=== PATIENT | male | born 1950 | race Caucasian/White ===

== ENCOUNTER 2018-09-28 21:29 | Inpatient (IN) ==
--- OUTSIDE RECORDS SUMMARY | 2018-09-28 21:32 | External Medical Summary | Continuity of Care Document ---
:1950 Author Name Keyur Durham, Provider Address Unavailable Unavailable , Care Team Providers Name Role Phone Naren White [email or web address], UNKNOWN Unavailable Unavailable Problems Active medical history not documented Allergies and Adverse Reactions Allergy history not documented Medications Medications not documented Procedures Procedures not documented Immunizations Immunizations not documented Plan of Treatment Planned Observations Planned Goals not documented Results No Known Results Results not documented
[2018-09-28] MEDS ORDERED: RAPID SEQUENCE INDUCTION BAG ONE (21:33)
[2018-09-28] MEDS ORDERED: AMIODARONE IV BOLUS / DRIP IV STA (21:41)
[2018-09-28] MEDS ORDERED: NOREPINEPHRINE BIT INJ 8 MG in DEXTROSE 5% 500 ML IV PRN (21:45)
[2018-09-28] MEDS ORDERED: AMIODARONE / D5W 360 MG/200 ML BAG IV SCH (21:45)
[2018-09-28] MEDS ORDERED: SODIUM CHLORIDE 0.9% 1000ML 1,000 ML IV SCH (21:45)
[2018-09-28 21:52] LABS: Hemoglobin 15.7 g/dL (14.0-18.0); Mean Corpuscular Hgb Conc 33.4 g/dL (32-36); Mean Corpuscular Volume 92.9 fL (80-100); Mean Platelet Volume 10.5 fL (7.4-10.4); Platelet Count 205 K/uL (130-400); RDW Coefficient of Variation 13.8 % (11.5-14.5); RDW Standard Deviation 46.3 fL (36.4-46.3); Red Blood Count 5.06 M/uL (4.7-6.1); White Blood Count 12.48 K/uL (4.8-10.8)
[2018-09-28 21:55] LABS: iSTAT Creatinine 1.4 mg/dl (0.6-1.3); iSTAT Hemoglobin 15.3 g/dl (14.0-18.0); iSTAT Ionized Calcium 1.11 mmol/l (1.12-1.32)
[2018-09-28] MEDS ORDERED: ASPIRIN 300 MG SUPP PR ONE (21:58)
[2018-09-28 22:03] LABS: INR 1.1 (0.9-1.1); Partial Thromboplastin Time 27.7 Seconds (21.0-31.0); Prothrombin Time 10.9 Seconds (9.0-12.0)
[2018-09-28 22:05] LABS: Base Excess VBG -15.1 mEq/L; Oxygen Saturation VBG 62.2 %
[2018-09-28] MEDS ORDERED: MIDAZOLAM HCL 1 MG/ML 2ML VIAL ONE (22:06)
[2018-09-28] MEDS ORDERED: HEPARIN (PORCINE) 1000 UNIT/ML 10 ML (CATH LAB USE ONLY) ONE ×2 (22:07→23:06)
[2018-09-28] MEDS ORDERED: fentaNYL citrate 100 MCG/2 ML VIAL ONE (22:07)
[2018-09-28] MEDS ORDERED: NiCARDipine HCL INJ 2.5 MG/ML 10 ML AMP ONE (22:07)
[2018-09-28] MEDS ORDERED: NITROGLYCERIN/D5W 100MCG/ML 20ML SYR ONE (22:07)
[2018-09-28 22:16] LABS: Alanine Aminotransferase 36 U/L (12-78); Albumin Globulin Ratio 1.1 (0.9-2); Albumin Level 3.1 gm/dl (3.4-5.0); Alkaline Phosphatase 73 U/L (45-117); Aspartate Aminotransferase 38 U/L (15-37); BUN Creatinine Ratio 11.6 (10-20); Bilirubin,Total 1.2 mg/dl (0.2-1); Blood Urea Nitrogen 17 mg/dl (7-18); Calcium 7.5 mg/dl (8.5-10.1); Carbon Dioxide 19 mmol/L (21-32); Chloride 109 mmol/L (98-107); Creatine Kinase 114 U/L (39-308); Creatine Kinase MB 3.5 ng/ml (0.5-3.6); Est GFR (African American) 57.3; Est GFR (Non-African American) 49.4; Globulin 2.7 gm/dl (2.5-4.0); Glucose 327 mg/dl (70-99); Potassium 3.1 mmol/L (3.5-5.1); Sodium 143 mmol/L (136-145); Total Protein 5.8 gm/dl (6.4-8.2); Troponin I 0.514 ng/ml (0-0.045)
--- NOTE | 2018-09-28 22:21 | XRay Report ---
SINGLE VIEW CHEST CLINICAL HISTORY: Cardiac arrest. Atypical chest pain. FINDINGS: 2 AP, portable, supine chest radiographs are obtained. No prior studies are available for c omparison at the time of dictation. The examination is degraded by portable technique and apical lord otic positioning. An endotracheal tube has been placed. The tip projects 3.5 cm above the david. The heart is enlarged and there is pulmonary vascular congestion. There are bilateral airspace opacities , greatest in the upper lobes. No large pleural effusion or pneumothorax is seen. The bony thorax is grossly intact. Cholecystectomy clips are seen in the right upper quadrant. IMPRESSION: 1. An endotracheal tube has been placed as detailed above. 2. Cardiomegaly with evidence of congestive failure. 3. There are bilateral airspace opacities with an upper lobe predominance. This likely represents int erstitial edema. Correlate clinically for evidence of superimposed pneumonia. Electronically signed by: Milton Espinoza M.D. 09/28/2018 10:20 PM
--- NOTE | 2018-09-28 22:22 | XRay Report ---
KUB CLINICAL HISTORY: Enteric tube placement. FINDINGS: An AP supine view of the upper abdomen is obtained. No prior studies are available for nikos blanc at the time of dictation. An enteric tube has been placed. The tip projects below the diaphrag m over the mid to distal stomach. There is no evidence of bowel obstruction. Cholecystectomy clips ar e seen in the right upper quadrant. The imaged bony structures appear intact. IMPRESSION: An enteric tube projects below the diaphragm over the mid to distal stomach. Electronically signed by: Milton Espinoza M.D. 09/28/2018 10:21 PM
[2018-09-28] MEDS ORDERED: OPTIRAY 320 125ml IV PRN (22:29)
--- NOTE | 2018-09-28 22:33 | CT Scan Report ---
CT SCAN OF THE BRAIN WITHOUT IV CONTRAST CLINICAL HISTORY: Cardiac arrest. COMPARISON STUDY: No priors. TECHNIQUE: Unenhanced axial CT scan of the brain is performed from the vertex to the skull base. A d ose lowering technique was utilized adhering to the principles of ALARA. CT DOSE: 3624.33 mGy.cm FINDINGS: Endotracheal and enteric tubes are noted on the [employer] tomogram. Brain parenchyma: The brain parenchyma is normal in appearance. There is no hemorrhage, mass effect, or evidence of acute territorial ischemia by CT criteria. Cedeño-white matter differentiation is preser philip. No extra-axial fluid collection is seen. Ventricles, sulci, cisterns: Normal in configuration. Intracranial vasculature: There is atherosclerotic calcification of the cavernous carotid arteries. Calvarium: Unremarkable. Sinuses and mastoids: There is mild mucosal thickening within the ethmoid sinuses. The remaining visu alized paranasal sinuses are clear. The mastoid air cells are well pneumatized. Fluid is noted in the nasopharynx. Orbits: The bony orbits are grossly intact. IMPRESSION: There is no hemorrhage, mass effect, or evidence of acute territorial ischemia by CT lorna haider. Electronically signed by: Milton Espinoza M.D. 09/28/2018 10:29 PM
[2018-09-28 22:34] LABS: Beta-Hydroxybutyrate 1.28 mg/dl (0.2-2.81)
--- NOTE | 2018-09-28 22:34 | Cardiology Consultation ---
Date of Consultation September 28, 2018 Assessment & Plan (1) Cardiac arrest: Patient here after out of hospital cardiac arrest. Initial rhythm reportedly VF. Post multiple rounds of CPR before ROSC. Hemodynamically stable now on minimal vasopressors. EKG with wide complex rhythm. With reported preceding chest pain I agree with proceeding with cardiac catheterization to evaluate for inciting ACS event. Further recommendations pending findings of cardiac catheterization. We will plan to place cooling catheter. History of Present Illness History of Present Illness Mr. Resendez is a 68-year-old man here after outside hospital cardiac arrest. Patient seen emergently in the ED after heart alert activated following ROSC. Patient intubated/sedated/paralyzed at time of interview. Systolic pressures in the 100-110s on 0.1 and norepi. EKG showed wide complex rhythm with wide RBBB block pattern in 90-110s. Per history obtained from patient was traveling home from [place] and reportedly was feeling fine. Upon arrival to the airport told his that he was having a "anginal attack," then became unresponsive. Reportedly down for ~10 minutes at the airport. Initial rhythm VF and shocked multiple times in field. Upon arrival intermittent ROSC with ongoing chest compressions. Intubated in ED. Started on amiodarone. Per patient had a cardiac catheterization approximately 4 years ago in [place]. Did not require stent/bypass surgery at that time. No other medical issues for which sees a doctor for regularly. Patient History Medical History Chest pain Social History Smoking Status: Unknown if ever smoked Review of Systems Review of Systems: Unobtainable due to endotracheal tube Physical Exam Physical Exam: General: Intubated/sedated/paralyzed HEENT: Sclerae anicteric, ETT in place Lungs: Clear to auscultation bilaterally Cardiac: Regular rate no murmurs Abdomen: Soft, nondistended Extremities: Warm, well perfused, no edema. 2+ radial pulses Skin: No rashes or lesions. Neuro: Paralyzed PG Care Time/CCT Total # of Minutes Spent Total Time Spent with Patient: Total time spent is greater than 50% in coordination of care (as documented) at patient's floor/unit and/or counseling patient:
--- NOTE | 2018-09-28 22:47 | CT Scan Report ---
CT ANGIOGRAM OF THE CHEST; CT SCAN OF THE ABDOMEN AND PELVIS WITH IV CONTRAST CLINICAL HISTORY: Cardiac arrest. COMPARISON STUDY: Chest x-ray and KUB dated 09/28/2018. TECHNIQUE: Following the IV administration of 116 of Optiray 320, CT angiogram of the chest is perfor med from the upper abdomen to the thoracic inlet utilizing the pulmonary embolus protocol. Images are reviewed in the axial, sagittal, coronal planes. 3-D MIPS images are created and assessed. Subsequen tly, CT scan of the abdomen and pelvis was performed from the lung bases to the proximal femora. Imag es are reviewed in the axial, sagittal, and coronal planes. IV contrast was administered without comp lication. A dose lowering technique was utilized adhering to the principles of ALARA. The examination is degraded by motion artifact, as well as by streak artifact from the arms which could not be eleva melissa above the chest or abdomen. FINDINGS: CHEST: Thyroid: Imaged portions of the thyroid gland are mildly enlarged and heterogeneous in attenuation. Thoracic aorta: The thoracic aorta is normal in caliber and demonstrates standard 3-vessel arch anato my. The thoracic aorta is not well opacified. Pulmonary vasculature: The pulmonary trunk is normal in caliber. There are no filling defects identif ied in the main, lobar, or segmental pulmonary arteries to indicate pulmonary embolus. Heart: The heart is mildly enlarged and configuration, and without pericardial effusion. There are sc attered coronary artery calcifications. Lungs and pleural spaces: Evaluation of the lung parenchyma is degraded by motion artifact. An endotr acheal tube terminates above the david. Minimal secretions are noted in the trachea. Airspace consol idation is seen throughout both lungs, most confluent in the upper lobes and the superior segments of the lower lobes. Only trace pleural fluid is seen bilaterally. There is no pneumothorax. Mediastinum: There is no mediastinal lymphadenopathy. Dinora: Clear. Axillae: There is no axillary lymphadenopathy. Bony thorax: No lytic or blastic lesions are identified. ABDOMEN AND PELVIS: Liver: The contrast-enhanced liver is normal in size, contour, and attenuation. There is no intrahepa tic or ductal dilatation. The hepatic veins and portal veins are patent. Gallbladder: Surgically absent noting clips in the gallbladder fossa. Spleen: Normal in size and attenuation. Pancreas: Unremarkable. Adrenal glands: Unremarkable. Kidneys: The contrast enhanced kidneys are normal in size and without hydronephrosis. Numerous parape lvic cysts are seen bilaterally. The kidneys enhance symmetrically. Abdominal vasculature: The abdominal aorta is normal in course and caliber noting moderate to advance d atherosclerotic calcification. Stomach and bowel: An enteric tube terminates in the distal stomach. The duodenum is normal in config uration. There is no bowel obstruction. Cervicomedullary gas is noted involving the cecum. Pneumatosi s intestinalis is not excluded. There is no mesenteric venous or portal venous gas The appendix is w ell-visualized and normal Peritoneum: There is no intraperitoneal free air or abdominal ascites. There is a small fat-containin g umbilical hernia. Lymphadenopathy: None. Pelvic viscera: The bladder is decompressed around a Galo catheter. Small foci of intraluminal gas a re likely related to instrumentation. The prostate and seminal vesicles are normal as imaged. Skeletal structures: Degenerative change is noted in the sacroiliac joints with partial fusion on the right. Mild to moderate lumbosacral spondylosis is observed. No lytic or blastic lesions are seen. IMPRESSION: 1. Streak and motion compromised examination. 2. There is no evidence of pulmonary embolus in the main, lobar, or segmental pulmonary arteries. 3. There is diffuse bilateral airspace consolidation as above. This could represent pulmonary edema, multifocal pneumonia, pulmonary hemorrhage, and/or ARDS. Clinical correlation will be essential. 4. Only trace pleural effusions are identified. No pneumothorax is seen. 5. Mild cardiomegaly. 6. Circumferential gas is noted involving the cecum. This is likely related to colonic contents/stool . Pneumatosis intestinalis is considered much less likely but not entirely excluded. 7. No additional findings are concerning for pneumatosis intestinalis. There is no mesenteric venous or portal venous gas. No intraperitoneal free air is seen. 8. Endotracheal and enteric tubes have been placed as above. Electronically signed by: Milton Espinoza M.D. 09/28/2018 10:45 PM
--- NOTE | 2018-09-28 22:47 | Emergency Department Note ---
Entered by Emy Marie acting as a scribe for History of Present Illness General Chief complaint: Cardiac Arrest/CPR Source: EMS Mode of arrival: EMS Limitations: other (Patient is obtunded) History of Present Illness Onset (ago): hour(s) 1 Location: chest Radiation: non-radiation Pain Consistency: + constant Relieved By: + none Exacerbated By: + none Associated symptoms: + chest pain Treatments prior to arrival: other (Amiodarone, Epi, Shocked) The patient is a 55 year old male who presents to the ED with complaints of cardiac arrest. He was brought to the ED via EMS. EMS states he was at the airport this evening with his when he went into a V-fib arrest. He was shocked 5 times, and was given 2 doses of Epi and 1 dose of Amiodarone. He did have pulses in the field according to EMS. CPR was initiated in the field. Family arrived at the bedside and told me the patient had just gotten off a plane from [place], [place], this evening when he started complaining of chest pain and told his he was having "an anginal attack". Past Med/Surg History Medical History Chest pain Social History Smoking Status: Unknown if ever smoked Review of Systems See HPI for pertinent positives & negatives. Unobtainable due to cognitive status (Patient is obtunded ) Physical Exam Vital Signs Vital Signs - 24 hr 09/28/18 21:30 09/28/18 21:37 09/28/18 21:40 Sepsis Action Taken by Nursing No Action Required Pulse Rate 84 119 H Pulse Rate from SpO2 Sensor 102 H 119 H Respiratory Rate 23 Blood Pressure Blood Pressure Mean Pulse Oximetry 45 L 32 L Oxygen Delivery Method Ambu-Bag Fraction of Inspired Oxygen 09/28/18 21:45 09/28/18 21:48 09/28/18 21:50 Sepsis Action Taken by Nursing Pulse Rate 102 H 113 H 108 H Pulse Rate from SpO2 Sensor 115 H 113 H 108 H Respiratory Rate 18 20 18 Blood Pressure 130/95 118/86 Blood Pressure Mean 106 96 Pulse Oximetry 94 98 97 Oxygen Delivery Method Mechanical Vent Fraction of Inspired Oxygen 100 09/28/18 21:55 09/28/18 22:00 09/28/18 22:05 Sepsis Action Taken by Nursing Pulse Rate 95 H 93 H 90 Pulse Rate from SpO2 Sensor 100 H 92 H 90 Respiratory Rate 15 18 13 Blood Pressure 103/79 112/83 110/69 Blood Pressure Mean 87 92 82 Pulse Oximetry 86 L 84 L 86 L Oxygen Delivery Method Mechanical Vent Mechanical Vent Mechanical Vent Fraction of Inspired Oxygen 09/28/18 22:10 09/28/18 22:20 Sepsis Action Taken by Nursing Pulse Rate 87 Pulse Rate from SpO2 Sensor 86 Respiratory Rate 18 Blood Pressure 103/76 Blood Pressure Mean 85 Pulse Oximetry 89 L Oxygen Delivery Method Mechanical Vent Mechanical Vent Fraction of Inspired Oxygen 100 GENERAL: Patient is obtunded in full cardiac arrest. Agonal respirations are noted. EYES: The conjunctivae are clear. The pupils are midsize and minimally reactive to light bilaterally. EARS, NOSE, MOUTH AND THROAT: The nose is without any evidence of any deformity. Blood was noted in the oropharynx. Dentition was intact. NECK: The neck is nontender and supple. RESPIRATORY: Agonal respirations were noted. There were rales noted throughout with bagging. CARDIOVASCULAR: Regular rate and rhythm noted there no murmurs rubs or gallops normal S1 normal S2 GASTROINTESTINAL: The abdomen is soft. Bowel sounds are present in all quadrants. Abdomen is nontender MUSCULOSKELETAL/EXTREMITIES: There is no evidence of gross deformity full range of motion is noted in the hips and shoulders SKIN: There is no obvious evidence of any rash. Pedal edema were noted bilatera lly. Erythema was noted over the mid chest wall from the Scottie device. NEUROLOGIC: The patient does not answer questions. He does not follow commands. Unable to assess orientation at this time. Patient is in cardiac arrest receiving chest compressions with the Scottie device. Procedures Free Text Procedures Endotracheal Intubation Indication Cardiac Arrest The patient was on 100% oxygen via NRB prior to the procedure. Suction, airway equipment, RSI drugs, respiratory equipment, and appropriate personnel were prepared prior to the initiation of the procedure. A time out was taken. Induction was used with Succinylcholine. After observing the clinical benefit of the medications, the airway was easily visualized utilizing a glide-scope and Boujie. A 8 size ETT tube was placed atraumatically to 25 cm at the lip using standard technique. The cuff inflated without signs of malfunction. There were bilateral breath sounds, positive colormetric change, no gastric sounds, a good capnography waveform, and post procedure pulse oximetry was 88%. There were no complications. Course 0930: The patient was evaluated in room A1 and a complete history and physical were performed. 2144: I discussed the patients case with Dr. Dozier Interventional Cardiology. The patient will be further evaluated. 2322: I discussed the patients case with Dr. Lao, [facility]. The patient will be further evaluated. Consultations Consultation #1: I discussed the patients case with Dr. Dozier Interventional Cardiology. The patient will be further evaluated. Time: 21:44 Consultation #2: I discussed the patients case with Dr. Lao, [facility]. The patient will be further evaluated. Time: 23:22 Administered Medications Norepinephrine Bitartrate 8 mg (/ Dextrose) 508 mls @ 20.76 mls/hr IV .Q24H PRN; Protocol PRN Reason: TITRATE Stop: 10/28/18 21:44 Last Titration: 09/28/18 22:05 Dose: 0.1 mcg/kg/min, 41.5 mls/hr Documented by: [id number] Admin: 09/28/18 21:50 Dose: 0.05 mcg/kg/min, 20.8 mls/hr Documented by: [id number] Cosigned by: [id number] Amiodarone HCl/Dextrose (Nexterone / D5w) 360 mg in 200 mls @ 33.333 mls/hr IV .Q6H CARLOS Stop: 09/29/18 03:44 Last Admin: 09/28/18 21:47 Dose: 1 mg/min, 33.3 mls/hr Documented by: [id number] Cosigned by: [id number] Ioversol (Optiray 320 125ml) 125 ml IV ONCE PRN PRN Reason: Interaction Checking Stop: 10/02/18 22:28 Last Admin: 09/28/18 22:30 Dose: 116 ml Documented by: [id number] Discontinued Medications Aspirin (Aspirin) 300 mg MN ONE ONE Stop: 09/28/18 21:59 Last Admin: 09/28/18 22:04 Dose: 300 mg Documented by: [id number] Sodium Chloride (Nss 1000ml) 1,000 mls @ 999 mls/hr IV .Q1H1M CARLOS Stop: 09/28/18 22:45 Last Admin: 09/28/18 21:30 Dose: 999 mls/hr Documented by: [id number] Medical Decision Making Differential Diagnosis Differential diagnoses includes but is not limited to acute coronary syndrome, myocardial infarction, pericarditis, pulmonary embolus, aortic dissection, pneu monia, pneumothorax, musculoskeletal, shingles, esophageal. Medical Records Attestation: I reviewed the patient's medical records. Home Medications Current Medication List: was personally reviewed by me Laboratory Data Attestation: I reviewed the patient's lab results. Result diagrams: 09/28/18 21:35 09/28/18 21:35 Lab Results 09/28/18 09/28/18 09/28/18 Range/Units 21:35 21:35 21:35 WBC 12.48 H (4.8-10.8) K/uL RBC 5.06 (4.7-6.1) M/uL Hgb 15.7 (14.0-18.0) g/dL POC Hgb (14.0-18.0) g/dl Hct 47.0 (42-52) % POC Hct (42-52) % MCV 92.9 (80-100) fL MCH 31.0 (25-34) pg MCHC 33.4 (32-36) g/dL RDW Std Deviation 46.3 (36.4-46.3) fL RDW Coeff of Jacobo 13.8 (11.5-14.5) % Plt Count 205 (130-400) K/uL MPV 10.5 H (7.4-10.4) fL Immature Gran % (Auto) 3.0 % Neut % (Auto) 47.1 % Lymph % (Auto) 43.0 % Gladwin % (Auto) 5.4 % Eos % (Auto) 1.1 % Baso % (Auto) 0.4 % Immature Gran # (Auto) 0.37 H (0.00-0.02) K/uL Neut # (Auto) 5.87 (1.4-6.5) K/uL Lymph # (Auto) 5.37 H (1.2-3.4) K/uL Gladwin # (Auto) 0.68 H (0.11-0.59) K/uL Eos # (Auto) 0.14 (0-0.5) K/uL Baso # (Auto) 0.05 (0-0.2) K/uL PT 10.9 (9.0-12.0) Seconds INR 1.1 (0.9-1.1) APTT 27.7 (21.0-31.0) Seconds PTT Ratio 1.0 VBG pH (7.36-7.41) VBG pCO2 (38-50) mmHg VBG pO2 mmHg VBG HCO3 mmol/L VBG O2 Saturation % VBG Base Excess mEq/L Barometric Pressure mm/Hg POC Sodium (135-144) mEq/L Sodium 143 (136-145) mmol/L POC Potassium (3.3-5.0) mEq/L Potassium 3.1 L (3.5-5.1) mmol/L POC Chloride (101-112) mEq/L Chloride 109 H (98-107) mmol/L Carbon Dioxide 19 L (21-32) mmol/L POC Total CO2 (24-31) mEq/l Anion Gap 15.0 H (3-11) POC Anion Gap (16-25) mmol/L POC BUN (7-18) mg/dl BUN 17 (7-18) mg/dl Creatinine 1.46 H (0.6-1.4) mg/dl POC Creatinine (0.6-1.3) mg/dl Est Cr Clr Drug Dosing Not Reportable Est GFR ( Amer) 57.3 Est GFR (Non-Af Amer) 49.4 BUN/Creatinine Ratio 11.6 (10-20) Glucose 327 H* (70-99) mg/dl POC Glucose (other) (70-99) mg/dl Calcium 7.5 L (8.5-10.1) mg/dl POC Ioniz Calcium Sebastian (1.12-1.32) mmol/l Phosphorus 4.9 (2.5-4.9) mg/dl Magnesium 2.7 H (1.8-2.4) mg/dl Total Bilirubin 1.2 H (0.2-1) mg/dl AST 38 H (15-37) U/L ALT 36 (12-78) U/L Alkaline Phosphatase 73 (45-117) U/L Total Creatine Kinase 114 (39-308) U/L CK-MB (CK-2) 3.5 (0.5-3.6) ng/ml CK/CKMB % Calc 3.1 H (0-3.0) POC Troponin I (0-0.045) ng/ml Troponin I 0.514 H* (0-0.045) ng/ml Total Protein 5.8 L (6.4-8.2) gm/dl Albumin 3.1 L (3.4-5.0) gm/dl Globulin 2.7 (2.5-4.0) gm/dl Albumin/Globulin Ratio 1.1 (0.9-2) Lipase 123 (73-393) U/L Beta-Hydroxybutyric Acd 1.28 (0.2-2.81) mg/dl Specimen Hemolysis 09/28/18 09/28/18 09/28/18 Range/Units 21:41 21:48 21:54 WBC (4.8-10.8) K/uL RBC (4.7-6.1) M/uL Hgb (14.0-18.0) g/dL POC Hgb 15.3 (14.0-18.0) g/dl Hct (42-52) % POC Hct 45 (42-52) % MCV (80-100) fL MCH (25-34) pg MCHC (32-36) g/dL RDW Std Deviation (36.4-46.3) fL RDW Coeff of Jacobo (11.5-14.5) % Plt Count (130-400) K/uL MPV (7.4-10.4) fL Immature Gran % (Auto) % Neut % (Auto) % Lymph % (Auto) % Gladwin % (Auto) % Eos % (Auto) % Baso % (Auto) % Immature Gran # (Auto) (0.00-0.02) K/uL Neut # (Auto) (1.4-6.5) K/uL Lymph # (Auto) (1.2-3.4) K/uL Gladwin # (Auto) (0.11-0.59) K/uL Eos # (Auto) (0-0.5) K/uL Baso # (Auto) (0-0.2) K/uL PT (9.0-12.0) Seconds INR (0.9-1.1) APTT (21.0-31.0) Seconds PTT Ratio VBG pH 7.00 L (7.36-7.41) VBG pCO2 72 H (38-50) mmHg VBG pO2 45 mmHg VBG HCO3 17 mmol/L VBG O2 Saturation 62.2 % VBG Base Excess -15.1 mEq/L Barometric Pressure 733.8 mm/Hg POC Sodium 142 (135-144) mEq/L Sodium (136-145) mmol/L POC Potassium 3.0 L (3.3-5.0) mEq/L Potassium (3.5-5.1) mmol/L POC Chloride 105 (101-112) mEq/L Chloride (98-107) mmol/L Carbon Dioxide (21-32) mmol/L POC Total CO2 21 L (24-31) mEq/l Anion Gap (3-11) POC Anion Gap 20.0 (16-25) mmol/L POC BUN 20 H (7-18) mg/dl BUN (7-18) mg/dl Creatinine (0.6-1.4) mg/dl POC Creatinine 1.4 H (0.6-1.3) mg/dl Est Cr Clr Drug Dosing Est GFR ( Amer) Est GFR (Non-Af Amer) BUN/Creatinine Ratio (10-20) Glucose (70-99) mg/dl POC Glucose (other) 304 H (70-99) mg/dl Calcium (8.5-10.1) mg/dl POC Ioniz Calcium Sebastian 1.11 L (1.12-1.32) mmol/l Phosphorus (2.5-4.9) mg/dl Magnesium (1.8-2.4) mg/dl Total Bilirubin (0.2-1) mg/dl AST (15-37) U/L ALT (12-78) U/L Alkaline Phosphatase (45-117) U/L Total Creatine Kinase (39-308) U/L CK-MB (CK-2) (0.5-3.6) ng/ml CK/CKMB % Calc (0-3.0) POC Troponin I 0.35 H (0-0.045) ng/ml Troponin I (0-0.045) ng/ml Total Protein (6.4-8.2) gm/dl Albumin (3.4-5.0) gm/dl Globulin (2.5-4.0) gm/dl Albumin/Globulin Ratio (0.9-2) Lipase (73-393) U/L Beta-Hydroxybutyric Acd (0.2-2.81) mg/dl Specimen Hemolysis Imaging Data Radiologist's Impression: Radiology results as stated below per my review and the radiologist's interpretation: KUB CLINICAL HISTORY: Enteric tube placement. FINDINGS: An AP supine view of the upper abdomen is obtained. No prior studies are available for comparison at the time of dictation. An enteric tube has been placed. The tip projects below the diaphragm over the mid to distal stomach. There is no evidence of bowel obstruction. Cholecystectomy clips are seen in the right upper quadrant. The imaged bony structures appear intact. IMPRESSION: An enteric tube projects below the diaphragm over the mid to distal stomach. Electronically signed by: Milton Espinoza M.D. 09/28/2018 10:[address] SCAN OF THE BRAIN WITHOUT IV CONTRAST CLINICAL HISTORY: Cardiac arrest. COMPARISON STUDY: No priors. TECHNIQUE: Unenhanced axial CT scan of the brain is performed from the vertex to the skull base. A dose lowering technique was utilized adhering to the principles of ALARA. CT DOSE: 3624.33 mGy.cm FINDINGS: Endotracheal and enteric tubes are noted on the neurology hospitalist tomogram. Brain parenchyma: The brain parenchyma is normal in appearance. There is no hemorrhage, mass effect, or evidence of acute territorial ischemia by CT criteria. Cedeño-white matter differentiation is preserved. No extra-axial fluid collection is seen. Ventricles, sulci, cisterns: Normal in configuration. Intracranial vasculature: There is atherosclerotic calcification of the cavernous carotid arteries. Calvarium: Unremarkable. Sinuses and mastoids: There is mild mucosal thickening within the ethmoid sinuses. The remaining visualized paranasal sinuses are clear. The mastoid air cells are well pneumatized. Fluid is noted in the nasopharynx. Orbits: The bony orbits are grossly intact. IMPRESSION: There is no hemorrhage, mass effect, or evidence of acute territorial ischemia by CT criteria. Electronically signed by: Milton Espinoza M.D. 09/28/2018 10:[address] ANGIOGRAM OF THE CHEST; CT SCAN OF THE ABDOMEN AND PELVIS WITH IV CONTRAST CLINICAL HISTORY: Cardiac arrest. COMPARISON STUDY: Chest x-ray and KUB dated 09/28/2018. TECHNIQUE: Following the IV administration of 116 of Optiray 320, CT angiogram of the chest is performed from the upper abdomen to the thoracic inlet utilizing the pulmonary embolus protocol. Images are reviewed in the axial, sagittal, coronal planes. 3-D MIPS images are created and assessed. Subsequently, CT scan of the abdomen and pelvis was performed from the lung bases to the proximal femora. Images are reviewed in the axial, sagittal, and coronal planes. IV contrast was administered without complication. A dose lowering technique was utilized adhering to the principles of ALARA. The examination is degraded by mo tion artifact, as well as by streak artifact from the arms which could not be elevated above the chest or abdomen. FINDINGS: CHEST: Thyroid: Imaged portions of the thyroid gland are mildly enlarged and heterogeneous in attenuation. Thoracic aorta: The thoracic aorta is normal in caliber and demonstrates standard 3-vessel arch anatomy. The thoracic aorta is not well opacified. Pulmonary vasculature: The pulmonary trunk is normal in caliber. There are no filling defects identified in the main, lobar, or segmental pulmonary arteries to indicate pulmonary embolus. Heart: The heart is mildly enlarged and configuration, and without pericardial effusion. There are scattered coronary artery calcifications. Lungs and pleural spaces: Evaluation of the lung parenchyma is degraded by motion artifact. An endotracheal tube terminates above the david. Minimal secretions are noted in the trachea. Airspace consolidation is seen throughout both lungs, most confluent in the upper lobes and the superior segments of the lower lobes. Only trace pleural fluid is seen bilaterally. There is no pneumo thorax. Mediastinum: There is no mediastinal lymphadenopathy. Dinora: Clear. Axillae: There is no axillary lymphadenopathy. Bony thorax: No lytic or blastic lesions are identified. ABDOMEN AND PELVIS: Liver: The contrast-enhanced liver is normal in size, contour, and attenuation. There is no intrahepatic or ductal dilatation. The hepatic veins and portal veins are patent. Gallbladder: Surgically absent noting clips in the gallbladder fossa. Spleen: Normal in size and attenuation. Pancreas: Unremarkable. Adrenal glands: Unremarkable. Kidneys: The contrast enhanced kidneys are normal in size and without hydronephrosis. Numerous parapelvic cysts are seen bilaterally. The kidneys enhance symmetrically. Abdominal vasculature: The abdominal aorta is normal in course and caliber noting moderate to advanced atherosclerotic calcification. Stomach and bowel: An enteric tube terminates in the distal stomach. The duodenum is normal in configuration. There is no bowel obstruction. Cervic omedullary gas is noted involving the cecum. Pneumatosis intestinalis is not excluded. There is no mesenteric venous or portal venous gas The appendix is well-visualized and normal Peritoneum: There is no intraperitoneal free air or abdominal ascites. There is a small fat-containing umbilical hernia. Lymphadenopathy: None. Pelvic viscera: The bladder is decompressed around a Galo catheter. Small foci of intraluminal gas are likely related to instrumentation. The prostate and seminal vesicles are normal as imaged. Skeletal structures: Degenerative change is noted in the sacroiliac joints with partial fusion on the right. Mild to moderate lumbosacral spondylosis is observed. No lytic or blastic lesions are seen. IMPRESSION: 1. Streak and motion compromised examination. 2. There is no evidence of pulmonary embolus in the main, lobar, or segmental pulmonary arteries. 3. There is diffuse bilateral airspace consolidation as above. This could represent pulmonary edema, multifocal pneumonia, pulmonary hemorrhage, and/or ARDS. Clinical correlation will be essential. 4. Only trace pleural effusions are identified. No pneumothorax is seen. 5. Mild cardiomegaly. 6. Circumferential gas is noted involving the cecum. This is likely related to colonic contents/stool. Pneumatosis intestinalis is considered much less likely but not entirely excluded. 7. No additional findings are concerning for pneumatosis intestinalis. There is no mesenteric venous or portal venous gas. No intraperitoneal free air is seen. 8. Endotracheal and enteric tubes have been placed as above. Electronically signed by: iMlton Espinoza M.D. 09/28/2018 10:[address] ANGIOGRAM OF THE CHEST; CT SCAN OF THE ABDOMEN AND PELVIS WITH IV CONTRAST CLINICAL HISTORY: Cardiac arrest. COMPARISON STUDY: Chest x-ray and KUB dated 09/28/2018. TECHNIQUE: Following the IV administration of 116 of Optiray 320, CT angiogram of the chest is performed from the upper abdomen to the thoracic inlet utilizing the pulmonary embolus protocol. Images are reviewed in the axial, sagittal, coronal planes. 3-D MIPS images are created and assessed. Subsequently, CT scan of the abdomen and pelvis was performed from the lung bases to the proximal femora. Images are reviewed in the axial, sagittal, and coronal planes. IV contrast was administered without complication. A dose lowering technique was utilized adhering to the principles of ALARA. The examination is degraded by motion artifact, as well as by streak artifact from the arms which could not be elevated above the chest or abdomen. FINDINGS: CHEST: Thyroid: Imaged portions of the thyroid gland are mildly enlarged and heterogeneous in attenuation. Thoracic aorta: The thoracic aorta is normal in caliber and demonstrates standard 3-vessel arch anatomy. The thoracic aorta is not well opacified. Pulmonary vasculature: The pulmonary trunk is normal in caliber. There are no filling defects identified in the main, lobar, or segmental pulmonary arteries to indicate pulmonary embolus. Heart: The heart is mildly enlarged and configuration, and without pericardial effusion. There are scattered coronary artery calcifications. Lungs and pleural spaces: Evaluation of the lung parenchyma is degraded by motion artifact. An endotracheal tube terminates above the david. Minimal secretions are noted in the trachea. Airspace consolidation is seen throughout both lungs, most confluent in the upper lobes and the superior segments of the lower lobes. Only trace pleural fluid is seen bilaterally. There is no pneumothorax. Mediastinum: There is no mediastinal lymphadenopathy. Dinora: Clear. Axillae: There is no axillary lymphadenopathy. Bony thorax: No lytic or blastic lesions are identified. ABDOMEN AND PELVIS: Liver: The contrast-enhanced liver is normal in size, contour, and attenuation. There is no intrahepatic or ductal dilatation. The hepatic veins and portal veins are patent. Gallbladder: Surgically absent noting clips in the gallbladder fossa. Spleen: Normal in size and attenuation. Pancreas: Unremarkable. Adrenal glands: Unremarkable. Kidneys: The contrast enhanced kidneys are normal in size and without hydronephrosis. Numerous parapelvic cysts are seen bilaterally. The kidneys enhance symmetrically. Abdominal vasculature: The abdominal aorta is normal in course and caliber noting moderate to advanced atherosclerotic calcification. Stomach and bowel: An enteric tube terminates in the distal stomach. The duodenum is normal in configuration. There is no bowel obstruction. Cervicomedullary gas is noted involving the cecum. Pneumatosis intestinalis is not excluded. There is no mesenteric venous or portal venous gas The appendix is well-visualized and normal Peritoneum: There is no intraperitoneal free air or abdominal ascites. There is a small fat-containing umbilical hernia. Lymphadenopathy: None. Pelvic viscera: The bladder is decompressed around a Galo catheter. Small foci of intraluminal gas are likely related to instrumentation. The prostate and seminal vesicles are normal as imaged. Skeletal structures: Degenerative change is noted in the sacroiliac joints with partial fusion on the right. Mild to moderate lumbosacral spondylosis is observed. No lytic or blastic lesions are seen. IMPRESSION: 1. Streak and motion compromised examination. 2. There is no evidence of pulmonary embolus in the main, lobar, or segmental pulmonary arteries. 3. There is diffuse bilateral airspace consolidation as above. This could represent pulmonary edema, multifocal pneumonia, pulmonary hemorrhage, and/or ARDS. Clinical correlation will be essential. 4. Only trace pleural effusions are identified. No pneumothorax is seen. 5. Mild cardiomegaly. 6. Circumferential gas is noted involving the cecum. This is likely related to colonic contents/stool. Pneumatosis intestinalis is considered much less likely but not entirely excluded. 7. No additional findings are concerning for pneumatosis intestinalis. There is no mesenteric venous or portal venous gas. No intraperitoneal free air is seen. 8. Endotracheal and enteric tubes have been placed as above. Electronically signed by: Milton Espinoza M.D. 09/28/2018 10:45 PM SINGLE VIEW CHEST CLINICAL HISTORY: Cardiac arrest. Atypical chest pain. FINDINGS: 2 AP, portable, supine chest radiographs are obtained. No prior studies are available for comparison at the time of dictation. The examination is degraded by portable technique and apical lordotic positioning. An endotracheal tube has been placed. The tip projects 3.5 cm above the david. The heart is enlarged and there is pulmonary vascular congestion. There are bilateral airspace opacities, greatest in the upper lobes. No large pleural effusion or pneumothorax is seen. The bony thorax is grossly intact. Ch olecystectomy clips are seen in the right upper quadrant. IMPRESSION: 1. An endotracheal tube has been placed as detailed above. 2. Cardiomegaly with evidence of congestive failure. 3. There are bilateral airspace opacities with an upper lobe predominance. This likely represents interstitial edema. Correlate clinically for evidence of superimposed pneumonia. Electronically signed by: Milton Espinoza M.D. 09/28/2018 10:20 PM ECG Data Attestation: I personally reviewed and interpreted this ECG as follows: Indication: other (Cardiac arrest) Rate (beats per minute): 102 Rhythm: sinus tachycardia Findings: + RBBB Comparison ECG Date: no prior available MDM Narrative The patient is a 68-year-old male who presented to the emergency department after a cardiac arrest. I received the prehospital notification phone call from the adjunct physical education instructor. Patient had a V. fib cardiac arrest. He received multiple defibrillations as well as amiodarone and epinephrine. CPR was started as well. According to the patient significant other he did complain of some chest discomfort and recently returned from [place] on a flight. The patient was in full cardiac arrest. His EKG appears to be consistent with ischemia. I discussed his case with the portrait photographer and he requested that we make the patient a heart alert while we are continuing her resuscitation. The patient was treated with IV fluids as well as IV Levophed. He was also started on IV amiodarone and given rectal aspirin. I discussed the patient's laboratory and radiographic studies with his significant other. He was also evaluated by the portrait photographer at the bedside. The grounds keeper team was also involved as the patient was made a CODE BLUE prior to arrival and then a heart alert after evaluation. I discussed the patient's condition with his significant other. She is aware that his condition is very tenuous at this time. Additional history was obtained from the prehospital personnel as well as the patient's significant other. I also discussed his case with the on-call [facility] hospitalist. They have agreed to evaluate the patient in the emergency department for further management disposition. Impression & Plan Cardiac arrest, Chest pain, ST elevation (STEMI) myocardial infarction, Pulmonary edema Critical Care Time Critical Care Time: Yes Total Critical Care Time: 60 I have personally spent greater than 60 minutes of critical care time in the direct management of this patient. This includes bedside care, interpretation of diagnostic studies, and testing, discussion with consultants, patient, and family members, and other required patient management activities. This 60 minutes is in excess of all separately billable procedures. Discharge Plan Visit Data *Final* Discharge Date/Time: 09/28/18 23:40 Chief Complaint: Cardiac Arrest/CPR ED Provider: Dylan Santa Discharge Problem: Cardiac arrest, Chest pain, ST elevation (STEMI) myocardial infarction, Pulmonary edema Patient Disposition: Still a Patient Discharge Instructions Interventions: ED Discharge Assessment Last Done: 09/28/18 23:40 The scribe's documentation has been prepared under my direction and personally reviewed by me in its entirety. I confirm that the note above accurately reflects all work, treatment, procedures, and medical decision making performed by me.
[2018-09-28 22:57] LABS: Basophils # (auto) 0.05 K/uL (0-0.2); Basophils % (auto) 0.4 %; Eosinophils # (auto) 0.14 K/uL (0-0.5); Eosinophils % (auto) 1.1 %; Immature Granulocytes # (auto) 0.37 K/uL (0.00-0.02); Lymphocytes # (auto) 5.37 K/uL (1.2-3.4); Monocytes # (auto) 0.68 K/uL (0.11-0.59); Monocytes % (auto) 5.4 %; Neutrophils # (auto) 5.87 K/uL (1.4-6.5); Neutrophils % (auto) 47.1 %
[2018-09-28] MEDS ORDERED: LIDOCAINE HCL/D5W 2000 MG/500 ML BAG IV ONE (23:13)
[2018-09-28] MEDS ORDERED: MAG SULFATE 50% 1GM/2ML VIAL IV ONE (23:20)
[2018-09-28] MEDS ORDERED: AMIODARONE 150MG / 100ML D5W (CATH LAB USE ONLY) ONE (23:21)
[2018-09-28] MEDS ORDERED: AMIODARONE HCL INJ 50 MG/ML 3 ML VIAL (CATH LAB USE ONLY) ONE (23:21)
[2018-09-28 23:30] LABS: Magnesium 2.7 mg/dl (1.8-2.4); Phosphorus 4.9 mg/dl (2.5-4.9)
[2018-09-28] MEDS ORDERED: TICAGRELOR 90 MG TAB PO ONE (23:30)
[2018-09-28] MEDS ORDERED: CALCIUM CHLORIDE 10% 10 ML SYR IV ONE (23:33)
[2018-09-28] MEDS ORDERED: PROPOFOL IV EMULSION 10 MG/ML 100 ML VIAL (CATH LAB USE ONLY) ONE (23:39)
[2018-09-28] MEDS ORDERED: METOPROLOL TARTRATE 1 MG/ML VIAL IV ONE (23:39)
[2018-09-28] MEDS ORDERED: ESMOLOL / NSS 2,500 MG/250 ML BAG IV PRN (23:47)
[2018-09-29 00:10] LABS: iSTAT Arterial Blood Gas HCO3 17 meg/L (19-24); iSTAT Arterial Blood Gas pCO2 41 mmHg (35-46); iSTAT Arterial Blood Gas pH 7.22 (7.35-7.45); iSTAT Carbon Dioxide 18 mEq/l (24-31)
[2018-09-29] MEDS ORDERED: NOREPINEPHRINE BIT INJ 8 MG in DEXTROSE 5% 500 ML IV PRN ×2 (00:36→01:35)
[2018-09-29] MEDS ORDERED: AMIODARONE / D5W 360 MG/200 ML BAG IV STA (00:36)
[2018-09-29] MEDS ORDERED: PROPOFOL 1,000 MG/100 ML VIAL IV PRN (00:36)
[2018-09-29] MEDS ORDERED: LIDOCAINE/D5W DRIP 4MG/ML 2,000 MG/500 ML BAG IV PRN (00:36)
[2018-09-29] MEDS ORDERED: ICU PROTOCOL FOR HYPERGLYCEMIA PRN ×2 (00:36→09:00)
[2018-09-29 00:45] LABS: iSTAT Venous Carbon Dioxide 21 mEq/l (24-31)
[2018-09-29] MEDS ORDERED: AMIODARONE / D5W 360 MG/200 ML BAG IV SCH ×2 (00:45→03:41)
[2018-09-29] MEDS ORDERED: VASOPRESSIN 20 UNITS in 0.9 % SODIUM CHLORIDE 100 ML IV STA (01:02)
[2018-09-29] MEDS ORDERED: EPINEPHrine 2 MG in DEXTROSE 5% 250 ML IV STA (01:04)
--- NOTE | 2018-09-29 01:04 | Cardiac Catheterization ---
[facility] Data: Orchestrator Cardiac Status Clinical evaluation leading to the procedure CAD Presenation: STEMI Anginal Classification: CCS IV Heart Failure: No Cardiogenic Shock within 24 Hours: No Cardiac Arrest within 24 Hours: No Imaging Studies Past 6 Months: No Stress Studies Past 6 Months: No Diagnostic Physicians Name: Eren Dozier MD Status: Emergency Closure Device Percutaneous Entry Location: Radial Closure Device: Radial Band Recommendations: PCI without planned CABG PCI Indication: Immediate PCI for STEMI Lesion Segment Name: mid LAD Culprit Artery: Yes Stenosis Prior to Rx (%): 100 Chronic Total Occlusion: No IVUS: No FFR: No Pre-Procedure EDUARDO Flow: 0 Previously Treated Lesion: No Lesion Complexity: Non-High/Non-C Lesion Length (mm): 20 Thrombus Present: Yes Bifurcation Lesion: Yes Guidewire Across Lesion: Stenosis Post-Procedure (%): 0 Post-Procedure EDUARDO Flow: 3 Devices(s) Deployed: Yes Yes Intraprocedure Events Significant Disection: No Perforation: No Cardiac Cath Procedure Full Procedure Date September 29, 2018 Pre-Procedure Diagnosis Pre-Procedure Diagnosis: STEMI AUC Score AUC Score: 9 Post-Procedure Diagnosis Post-Procedure Diagnosis: Severe CAD, Successful PCI and Elevated Intracardiac Pressures Procedure(s) Performed Procedure(s) Performed: Coronary Angiography, Left Heart Cath, Right Heart Cath, Drug Eluting Stent, CPR and Procedure (Cooling catheter placement) Shake Table Operator Eren Dozier MD Chin Strap Sewer(s) Ramos Estimated Blood Loss Estimated Blood Loss: 30 Medication(s) Medication(s): Heparin, Integrilin, Lidocaine 1%, Nitroglycerin and Norepinephrine Medication(s): Amiodarone Lidocaine Propofol Ticagrelor Summary of Findings Indication: STEMI/cardiac arrest Access: 6 Fr right radial artery Catheters: [place], EBU 3.5 guide, diagnostic JR4, diagnostic pigtail, 7 Fr swan Findings: LM -large caliber vessel, angiographically normal LAD -large caliber vessel, 100% acute occlusion, earlymid LAD at takeoff of first diagonal. First diagonal with 60% ostial stenosis Circumflex -large caliber vessel, no significant disease RCA -moderate caliber vessel, dominant, diffuse 40% proximal to mid disease, distal luminal irregularities extending into right PDA RA 13 RV 38/13 PA 38/23/28 PAWP 20 PaSat 37% on esmolol AoSat 89% on 100% FiO2 -- PCI -- Antithrombotic therapy: Heparin, Integrilin, ticagrelor Procedure: Left main cannulated with EBU 3.5 guide BMW wire placed into first diagonal Cloth Handler 50 wire passed across early mid LAD occlusion into distal vessel Mid LAD lesion predilated with 2.5 compliant balloon Ostium of first diagonal dilated with 2.5 balloon Dilated LAD lesion stented with 3.0 x 26 mm [place] drug-eluting stent Stent post-dilated with 4.0 noncompliant balloon IC Integrilin administered for distal emboli Post procedure EDUARDO 3 flow, stent well expanded with minimal residual stenosis and no apparent cardiac complications. EDUARDO II-III flow in first diagonal with residual 50 to 60% stenosis Right heart catheterization performed via 7 Fr sheath placed to right common femoral vein under ultrasound guidance. Following RHC sheath exchanged for cooling catheter. Arterial Closure: TR band With reestablished flow after ballooning developed recurrent VT requiring multiple defibrillations at 200 J (22 in total over duration of case). Was reloaded with amiodarone, started on lidocaine, received magnesium, calcium gluconate, Lopressor and esmolol. Temporarily electrically stable after initiation of sedation with propofol. Blood pressures stable on low-dose norepinephrine 0.05 After completion of procedure while talking to family patient became increasingly bradycardic and went into PEA arrest requiring epi, atropine and repeat CPR ROSC with wide-complex rhythm in the 110s to 120s Summary: 1. Anterior STEMI/100% acute occluded earlymid LAD -50 to 60% ostial stenosis of first diagonal 2. Out of hospital cardiac arrest 3. Refractory VT storm 4. Elevated intracardiac filling pressures 5. Cardiogenic shock 6. Successful PCI of proximal to mid LAD with single drug-eluting stent (3.0 x 26 mm [place]; postdilated with 4.0 NC). Recommendations: With refractory VT storm, extended out of hospital course and cardiogenic shock prognosis poor and discussions started with family regarding goals of care. Transferred to ICU for additional management. Hemodynamics Rest Ao:: 136/89/107 Final Ao: 114/82/97 LV: -- Recommendations Recommendations: PCI without planned CABG Specimens Specimens: None Radiation Exposure (mGy) 4427 Contrast (mls) 200 Fluids (cc crystalloids) Fluids (cc crystalloids): 75 Drains Drains: none Anesthesia propofol Procedural Complication(s) None Disposition ICU
[2018-09-29] MEDS ORDERED: EPINEPHrine 4 MG in DEXTROSE 5% HYPOTENSION IV PRN (01:05)
[2018-09-29] MEDS ORDERED: VASOPRESSIN 20 UNITS in 0.9 % SODIUM CHLORIDE 100 ML IV SCH (01:15)
[2018-09-29] MEDS ORDERED: LIDOCAINE IV BOLUS & DRIP IV STA (01:27)
[2018-09-29] MEDS ORDERED: fentaNYL DRIP 1,250 MCG/250 ML BAG IV PRN (01:30)
[2018-09-29] MEDS ORDERED: VASOPRESSIN 20 UNITS in 0.9 % SODIUM CHLORIDE 100 ML IV PRN (01:45)
[2018-09-29] MEDS ORDERED: PROPOFOL 1,000 MG/100 ML VIAL IV SCH (01:45)
[2018-09-29] MEDS: NOREPINEPHRINE BIT INJ 8 MG in DEXTROSE 5% 500 ML IV SCH ×2 (01:59→09:36)
[2018-09-29] MEDS: LIDOCAINE/D5W DRIP 4MG/ML 2,000 MG/500 ML BAG IV PRN ×4 (02:02→09:34)
--- NOTE | 2018-09-29 03:34 | History & Physical Report ---
Date of Service September 29, 2018 Assessment & Plan (1) Cardiac arrest: Out of hospital V. fib cardiac arrest/STEMI/ROSC after multiple rounds of CPR and shocking/cardiogenic shock-- Patient is admitted to the intensive care unit on ventilator and multiple drips post cardiac catheterization. Continue orders as per interventional cardiology Dr. Eren Dozier, and consult. Continue orders per curator of photography and prints Dr. Rueda, and consult. Patient has been made DNR per the above. [facility] has been consulted Present on Admission?: Yes (2) ST elevation (STEMI) myocardial infarction: See above Present on Admission?: Yes (3) Cardiogenic shock: Continue infusions and support as noted. Discussion with family by Dr. Dozier regarding poor prognosis due to refractory VT storm, extended out of hospital course and cardiogenic shock. Patient made DNR. Present on Admission?: Yes (4) Hypoxic encephalopathy: Patient was reportedly down [place] 10 [place] at the airport. We will order EEG for the a.m. and consult neurology. Present on Admission?: Yes (5) Pulmonary edema: Present on Admission?: Yes (6) Hyperglycemia: Placed on Accu-Cheks and NovoLog coverage per hyperglycemic protocol. Present on Admission?: Yes (7) Hypokalemia: Replacing with IV fluids Present on Admission?: Yes (8) Acute kidney injury: Creatinine 1.46 upon admission labs, with no baseline for comparison. Serial a.m. laboratories. Present on Admission?: Yes (9) Acute respiratory failure with hypoxia: On ventilator. Follow serial ABGs. And adjust ventilator settings accordingly. Acute CHF secondary to NSTEMI. Present on Admission?: Yes (10) Obesity (BMI 30.0-34.9): Noted Present on Admission?: Yes (11) Admitted to intensive care unit: Admitted to ICU status post V. fib arrest, NSTEMI, acute respiratory failure with hypoxia, for ongoing management. Present on Admission?: Yes History of Present Illness Chief Complaint: The patient is a 68-year-old male who was brought to the emergency department with history of lrf-un-necjwsff cardiac arrest via EMS. Primary Care Provider: NO PCP The patient is a 68-year-old male brought to the emergency department via EMS after having an abv-ur-inhbmgfd cardiac arrest. EMS reports that patient was at the airport earlier this evening with his , when he went into a V. fib ar rest. He was shocked 5 times at the airport, given 2 doses of epinephrine and 1 dose of amiodarone. He was reported to have a pulse in the field, CPR was initiated by EMS, Scottie device placed, and patient was transported to the ED. Per the family report, the patient had just gotten off of a plane from [facility], and reported to his that he was having an angina attack. The patient did reportedly have a cardiac catheterization in [place] approximately 4 years ago, but did not require any intervention. A heart alert was called, and Dr. Eren Dozier from interventional cardiology took the patient to the cardiac catheterization laboratory. The patient himself was not able to contribute to the HPI or review of systems, due to unresponsive state. 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 HEENT--PERRL, EOMI, mucous membranes and oropharynx dry. Neck-- + JVD. No bruits. Thyroid normal, trachea midline, no adenopathy. Heart--normal S1 and S2. No murmurs, rubs or gallops. Lungs--coarse breath sounds bilaterally. Abdomen--normal bowel sounds and soft. Nondistended. Extremities--no cyanosis or clubbing. 1+ bilateral pedal edema. Dermatologic--no rash. Erythema over chest wall from Scottie device Neurologic--deferred Rheumatologic--deferred Psychiatric--sedated and intubated Results & Data Vital Signs (Past 12 Hours) Vital Signs Temp Pulse Pulse Resp BP BP Pulse Ox 09/29/18 02:20 100 H 24 100 09/29/18 01:15 117 H 178/130 H 96 09/29/18 01:13 116 H 176/132 H 98 09/29/18 01:10 110 H 176/126 H 95 09/29/18 01:08 97.9 F 100 H 21 86/58 L 100 09/29/18 01:05 87 85/62 L 98 09/29/18 01:04 84 70/53 L 93 09/29/18 01:02 83 57/46 L 09/29/18 01:00 84 61/45 L 09/29/18 00:58 84 66/48 L 09/29/18 00:50 89 83/57 L 09/29/18 00:45 94 H 126/70 92 09/29/18 00:42 98 H 18 89 L 09/29/18 00:35 99 H 86/58 L 89 L 09/28/18 22:10 87 18 103/76 89 L 09/28/18 22:05 90 13 110/69 86 L 09/28/18 22:00 93 H 18 112/83 84 L 09/28/18 21:55 95 H 15 103/79 86 L 09/28/18 21:50 108 H 18 97 09/28/18 21:48 113 H 20 118/86 98 09/28/18 21:45 102 H 18 130/95 94 09/28/18 21:40 119 H 32 L 09/28/18 21:37 84 23 45 L Laboratory Results Laboratory Results WBC 12.48 K/uL (4.8-10.8) H 09/28/18 21:35 RBC 5.06 M/uL (4.7-6.1) 09/28/18 21:35 Hgb 15.7 g/dL (14.0-18.0) 09/28/18 21:35 POC Hgb 15.3 g/dl (14.0-18.0) 09/28/18 21:41 Hct 47.0 % (42-52) 09/28/18 21:35 POC Hct 45 % (42-52) 09/28/18 21:41 MCV 92.9 fL (80-100) 09/28/18 21:35 MCH 31.0 pg (25-34) 09/28/18 21:35 MCHC 33.4 g/dL (32-36) 09/28/18 21:35 RDW Std Deviation 46.3 fL (36.4-46.3) 09/28/18 21:35 RDW Coeff of Jacobo 13.8 % (11.5-14.5) 09/28/18 21:35 Plt Count 205 K/uL (130-400) 09/28/18 21:35 MPV 10.5 fL (7.4-10.4) H 09/28/18 21:35 Immature Gran % (Auto) 3.0 % 09/28/18 21:35 Neut % (Auto) 47.1 % 09/28/18 21:35 Lymph % (Auto) 43.0 % 09/28/18 21:35 Schuyler % (Auto) 5.4 % 09/28/18 21:35 Eos % (Auto) 1.1 % 09/28/18 21:35 Baso % (Auto) 0.4 % 09/28/18 21:35 Immature Gran # (Auto) 0.37 K/uL (0.00-0.02) H 09/28/18 21:35 Neut # (Auto) 5.87 K/uL (1.4-6.5) 09/28/18 21:35 Lymph # (Auto) 5.37 K/uL (1.2-3.4) H 09/28/18 21:35 Schuyler # (Auto) 0.68 K/uL (0.11-0.59) H 09/28/18 21:35 Eos # (Auto) 0.14 K/uL (0-0.5) 09/28/18 21:35 Baso # (Auto) 0.05 K/uL (0-0.2) 09/28/18 21:35 PT 10.9 Seconds (9.0-12.0) 09/28/18 21:35 INR 1.1 (0.9-1.1) 09/28/18 21:35 APTT 27.7 Seconds (21.0-31.0) 09/28/18 21:35 PTT Ratio 1.0 09/28/18 21:35 Activ Coag Time Kaolin 241 SECONDS (94-140) H 09/28/18 23:20 POC pH 7.22 (7.35-7.45) L 09/28/18 23:17 POC pCO2 41 mmHg (35-46) 09/28/18 23:17 POC pO2 79 mmHg (80-95) L 09/28/18 23:17 POC HCO3 17 javier/L (19-24) L 09/28/18 23:17 POC Total CO2 18 mEq/l (24-31) L 09/28/18 23:17 POC Base Excess -11.0 javier/L (-9-1.8) L 09/28/18 23:17 POC ABG O2 Sat 93.0 % (90-95) 09/28/18 23:17 VBG pH 7.00 (7.36-7.41) L 09/28/18 21:54 POC VBG pH 7.18 (7.36-7.41) L* 09/29/18 00:00 VBG pCO2 72 mmHg (38-50) H 09/28/18 21:54 POC VBG pCO2 52 mmHg (38-50) H 09/29/18 00:00 VBG pO2 45 mmHg 09/28/18 21:54 POC VBG pO2 < 32 mmHg (30-55) 09/29/18 00:00 VBG HCO3 17 mmol/L 09/28/18 21:54 POC VBG HCO3 19 meq/L (23-28) L 09/29/18 00:00 POC VBG Total CO2 21 mEq/l (24-31) L 09/29/18 00:00 VBG O2 Saturation 62.2 % 09/28/18 21:54 POC Venous O2 Sat 37.0 % (70-80) L 09/29/18 00:00 VBG Base Excess -15.1 mEq/L 09/28/18 21:54 POC VBG Base Excess -9.0 meq/L 09/29/18 00:00 Barometric Pressure 733.8 mm/Hg 09/28/18 21:54 POC Sodium 142 mEq/L (135-144) 09/28/18 21:41 Sodium 143 mmol/L (136-145) 09/28/18 21:35 POC Potassium 3.0 mEq/L (3.3-5.0) L 09/28/18 21:41 Potassium 3.1 mmol/L (3.5-5.1) L 09/28/18 21:35 POC Chloride 105 mEq/L (101-112) 09/28/18 21:41 Chloride 109 mmol/L (98-107) H 09/28/18 21:35 Carbon Dioxide 19 mmol/L (21-32) L 09/28/18 21:35 POC Total CO2 21 mEq/l (24-31) L 09/28/18 21:41 Anion Gap 15.0 (3-11) H 09/28/18 21:35 POC Anion Gap 20.0 mmol/L (16-25) 09/28/18 21:41 POC BUN 20 mg/dl (7-18) H 09/28/18 21:41 BUN 17 mg/dl (7-18) 09/28/18 21:35 Creatinine 1.46 mg/dl (0.6-1.4) H 09/28/18 21:35 POC Creatinine 1.4 mg/dl (0.6-1.3) H 09/28/18 21:41 Est Cr Clr Drug Dosing Not Reportable 09/28/18 21:35 Est GFR ( Amer) 57.3 09/28/18 21:35 Est GFR (Non-Af Amer) 49.4 09/28/18 21:35 BUN/Creatinine Ratio 11.6 (10-20) 09/28/18 21:35 Glucose 327 mg/dl (70-99) H* 09/28/18 21:35 POC Glucose (other) 341 mg/dl (70-99) H 09/29/18 01:47 Calcium 7.5 mg/dl (8.5-10.1) L 09/28/18 21:35 POC Ioniz Calcium Sebastian 1.11 mmol/l (1.12-1.32) L 09/28/18 21:41 Phosphorus 4.9 mg/dl (2.5-4.9) 09/28/18 21:35 Magnesium 2.7 mg/dl (1.8-2.4) H 09/28/18 21:35 Total Bilirubin 1.2 mg/dl (0.2-1) H 09/28/18 21:35 AST 38 U/L (15-37) H 09/28/18 21:35 ALT 36 U/L (12-78) 09/28/18 21:35 Alkaline Phosphatase 73 U/L (45-117) 09/28/18 21:35 Total Creatine Kinase 114 U/L (39-308) 09/28/18 21:35 CK-MB (CK-2) 3.5 ng/ml (0.5-3.6) 09/28/18 21:35 CK/CKMB % Calc 3.1 (0-3.0) H 09/28/18 21:35 POC Troponin I 0.35 ng/ml (0-0.045) H 09/28/18 21:48 Troponin I 0.514 ng/ml (0-0.045) H* 09/28/18 21:35 Total Protein 5.8 gm/dl (6.4-8.2) L 09/28/18 21:35 Albumin 3.1 gm/dl (3.4-5.0) L 09/28/18 21:35 Globulin 2.7 gm/dl (2.5-4.0) 09/28/18 21:35 Albumin/Globulin Ratio 1.1 (0.9-2) 09/28/18 21:35 Lipase 123 U/L (73-393) 09/28/18 21:35 Beta-Hydroxybutyric Acd 1.28 mg/dl (0.2-2.81) 09/28/18 21:35 Specimen Hemolysis 09/28/18 21:35 Nasal Screen MRSA (PCR) Negative (Negative) 09/29/18 01:15 Diagnostic Findings [place], [place] [phone] XRay Report Patient: LAUREN CLEMENST Date: 09/28/18 MR#: [id number]: [address] Acct ID:[id number]: Date: [address] [place] [address] Zip: [place] [address] Age: 68Location: ED Sex: M Room/Bed: Att Phy: Diagnosis: CARDIAC ARREST Monse Phy: PCP,NO Service Date: 09/28/18 Fam Phy: Interpreting Phy: Milton Espinoza MD Admit Phy: Ordering Phy: Dylan Santa DO cc: ~ SINGLE VIEW CHEST CLINICAL HISTORY: Cardiac arrest. Atypical chest pain. FINDINGS: 2 AP, portable, supine chest radiographs are obtained. No prior studies are available for comparison at the time of dictation. The examination is degraded by portable technique and apical lordotic positioning. An endotracheal tube has been placed. The tip projects 3.5 cm above the david. The heart is enlarged and there is pulmonary vascular congestion. There are bilateral airspace opacities, greatest in the upper lobes. No large pleural effusion or pneumothorax is seen. The bony thorax is grossly intact. Cholecystectomy clips are seen in the right upper quadrant. IMPRESSION: 1. An endotracheal tube has been placed as detailed above. 2. Cardiomegaly with evidence of congestive failure. 3. There are bilateral airspace opacities with an upper lobe predominance. This likely represents interstitial edema. Correlate clinically for evidence of superimposed pneumonia. Electronically signed by: Milton Espinoza M.D. 09/28/2018 10:20 PM Dictated: 09/28/182217 Transcribed: 09/28/182217 [place], [place] [phone] CT Scan Report Patient: LAUREN CLEMENTS Date: 09/28/18 MR#: [id number]: [address] Acct ID:[id number]: Date: [address] [place] [address] Zip: [place] [address] Age: 68Location: ED Sex: M Room/Bed: Att Phy: Diagnosis: CARDIAC ARREST Monse Phy: PCP,NO Service Date: 09/28/18 [facility] Phy: Interpreting Phy: Milton Espinoza MD Admit Phy: Ordering Phy: Dylan Santa DO cc: ~ CT ANGIOGRAM OF THE CHEST; CT SCAN OF THE ABDOMEN AND PELVIS WITH IV CONTRAST CLINICAL HISTORY: Cardiac arrest. COMPARISON STUDY: Chest x-ray and KUB dated 09/28/2018. TECHNIQUE: Following the IV administration of 116 of Optiray 320, CT angiogram of the chest is performed from the upper abdomen to the thoracic inlet utilizing the pulmonary embolus protocol. Images are reviewed in the axial, sagittal, coronal planes. 3-D MIPS images are created and assessed. Subsequently, CT scan of the abdomen and pelvis was performed from the lung bases to the proximal femora. Images are reviewed in the axial, sagittal, and coronal planes. IV contrast was administered without complication. A dose lowering technique was utilized adhering to the principles of ALARA. The examination is degraded by motion artifact, as well as by streak artifact from the arms which could not be elevated above the chest or abdomen. FINDINGS: CHEST: Thyroid: Imaged portions of the thyroid gland are mildly enlarged and heterogeneous in attenuation. Thoracic aorta: The thoracic aorta is normal in caliber and demonstrates standard 3-vessel arch anatomy. The thoracic aorta is not well opacified. Pulmonary vasculature: The pulmonary trunk is normal in caliber. There are no filling defects identified in the main, lobar, or segmental pulmonary arteries to indicate pulmonary embolus. Heart: The heart is mildly enlarged and configuration, and without pericardial effusion. There are scattered coronary artery calcifications. Lungs and pleural spaces: Evaluation of the lung parenchyma is degraded by motion artifact. An endotracheal tube terminates above the david. Minimal secretions are noted in the trachea. Airspace consolidation is seen throughout both lungs, most confluent in the upper lobes and the superior segments of the lower lobes. Only trace pleural fluid is seen bilaterally. There is no pneumothorax. Mediastinum: There is no mediastinal lymphadenopathy. Dinora: Clear. Axillae: There is no axillary lymphadenopathy. Bony thorax: No lytic or blastic lesions are identified. ABDOMEN AND PELVIS: Liver: The contrast-enhanced liver is normal in size, contour, and attenuation. There is no intrahepatic or ductal dilatation. The hepatic veins and portal veins are patent. Gallbladder: Surgically absent noting clips in the gallbladder fossa. Spleen: Normal in size and attenuation. Pancreas: Unremarkable. Adrenal glands: Unremarkable. Kidneys: The contrast enhanced kidneys are normal in size and without hydronephrosis. Numerous parapelvic cysts are seen bilaterally. The kidneys enhance symmetrically. Abdominal vasculature: The abdominal aorta is normal in course and caliber noting moderate to advanced atherosclerotic calcification. Stomach and bowel: An enteric tube terminates in the distal stomach. The duodenum is normal in configuration. There is no bowel obstruction. Cervicomedullary gas is noted involving the cecum. Pneumatosis intestinalis is not excluded. There is no mesenteric venous or portal venous gas The appendix is well-visualized and normal Peritoneum: There is no intraperitoneal free air or abdominal ascites. There is a small fat-containing umbilical hernia. Lymphadenopathy: None. Pelvic viscera: The bladder is decompressed around a Galo catheter. Small foci of intraluminal gas are likely related to instrumentation. The prostate and seminal vesicles are normal as imaged. Skeletal structures: Degenerative change is noted in the sacroiliac joints with partial fusion on the right. Mild to moderate lumbosacral spondylosis is observed. No lytic or blastic lesions are seen. IMPRESSION: 1. Streak and motion compromised examination. 2. There is no evidence of pulmonary embolus in the main, lobar, or segmental pulmonary arteries. 3. There is diffuse bilateral airspace consolidation as above. This could represent pulmonary edema, multifocal pneumonia, pulmonary hemorrhage, and/or ARDS. Clinical correlation will be essential. 4. Only trace pleural effusions are identified. No pneumothorax is seen. 5. Mild cardiomegaly. 6. Circumferential gas is noted involving the cecum. This is likely related to colonic contents/stool. Pneumatosis intestinalis is considered much less likely but not entirely excluded. 7. No additional findings are concerning for pneumatosis intestinalis. There is no mesenteric venous or portal venous gas. No intraperitoneal free air is seen. 8. Endotracheal and enteric tubes have been placed as above. Electronically signed by: Milton Espinoza M.D. 09/28/2018 10:45 PM Dictated: 09/28/182229 Transcribed: 09/28/182234 [place], [place] [phone] CT Scan Report Patient: LAUREN CLEMENTS Date: 09/28/18 MR#: [id number]: [address] Acct ID:[id number]: Date: [address] [place] [address] Zip: [place] [address] Age: 68Location: ED Sex: M Room/Bed: Att Phy: Diagnosis: CARDIAC ARREST Monse Phy: PCP,NO Service Date: 09/28/18 Fam Phy: Interpreting Phy: Milton Espinoza MD Admit Phy: Ordering Phy: Dylan Santa DO cc: ~ CT SCAN OF THE BRAIN WITHOUT IV CONTRAST CLINICAL HISTORY: Cardiac arrest. COMPARISON STUDY: No priors. TECHNIQUE: Unenhanced axial CT scan of the brain is performed from the vertex to the skull base. A dose lowering technique was utilized adhering to the principles of ALARA. CT DOSE: 3624.33 mGy.cm FINDINGS: Endotracheal and enteric tubes are noted on the financial institution vice president tomogram. Brain parenchyma: The brain parenchyma is normal in appearance. There is no hemorrhage, mass effect, or evidence of acute territorial ischemia by CT criteria. Cedeño-white matter differentiation is preserved. No extra-axial fluid collection is seen. Ventricles, sulci, cisterns: Normal in configuration. Intracranial vasculature: There is atherosclerotic calcification of the cavernous carotid arteries. Calvarium: Unremarkable. Sinuses and mastoids: There is mild mucosal thickening within the ethmoid sinuses. The remaining visualized paranasal sinuses are clear. The mastoid air cells are well pneumatized. Fluid is noted in the nasopharynx. Orbits: The bony orbits are grossly intact. IMPRESSION: There is no hemorrhage, mass effect, or evidence of acute territorial ischemia by CT criteria. Electronically signed by: Milton Espinoza M.D. 09/28/2018 10:29 PM Dictated: 09/28/182226 Transcribed: 09/28/182226 [facility] ROBERT [phone] XRay Report Patient: LAUREN CLEMENTS Date: 09/28/18 MR#: [id number]: [address] Acct ID:[id number]: [facility] Zip: [place] [address] Age: 68Location: ED Sex: M Room/Bed: Att Phy: Diagnosis: CARDIAC ARREST Monse Phy: PCP,NO Service Date: 09/28/18 Fam Phy: Interpreting Phy: Milton Espinoza MD Admit Phy: Ordering Phy: Milton Ardon PA-C cc: ~ MATTHEW CLINICAL HISTORY: Enteric tube placement. FINDINGS: An AP supine view of the upper abdomen is obtained. No prior studies are available for comparison at the time of dictation. An enteric tube has been placed. The tip projects below the diaphragm over the mid to distal stomach. There is no evidence of bowel obstruction. Cholecystectomy clips are seen in the right upper quadrant. The imaged bony structures appear intact. IMPRESSION: An enteric tube projects below the diaphragm over the mid to distal stomach. Electronically signed by: Milton Espinoza M.D. 09/28/2018 10:21 PM Dictated: 09/28/182219 Transcribed: 08/19/19 2220 Code Status & VTE Plan Code Status DO NOT RESUSCITATE. Patient is presently intubated in the ICU VTE Prophylaxis Plan VTE Prophylaxis will be ordered: Yes Critical Care Time Critical Care Time: Yes Total Critical Care Time: 40 Total critical care time was 40 minutes PG Care Time/CCT Total # of Minutes Spent Total Time Spent with Patient: Total time spent is greater than 50% in coordination of care (as documented) at patient's floor/unit and/or counseling patient: Critical Care Time: Yes Total Critical Care Time: 40
[2018-09-29 04:06] LABS: iSTAT Allen Test Pass; iSTAT Art Bld Gas pCO2 Correct 40 mmHg (35-46); iSTAT Art Bld Gas pH Corrected 7.204 (7.35-7.45); iSTAT Arterial Blood Gas HCO3 16 meg/L (19-24); iSTAT Arterial Blood Gas pCO2 40 mmHg (35-46); iSTAT Carbon Dioxide 17 mEq/l (24-31); iSTAT FiO2 85 %; iSTAT Site L Radial
[2018-09-29] MEDS ORDERED: SODIUM BICARBONATE 8.4% 150 MEQ in DEXTROSE 5% 1,000 ML IV SCH (04:15)
[2018-09-29] MEDS ORDERED: GLUCOSE 10 TABS/TUBE PO PRN (04:45)
[2018-09-29] MEDS ORDERED: CARBOHYDRATES FOR HYPOGLYCEMIA PO PRN (04:45)
[2018-09-29] MEDS ORDERED: DEXTROSE 50% 50 ML SYRINGE IV PRN (04:45)
[2018-09-29] MEDS ORDERED: GLUCAGON FOR INJ 1 MG VIAL IM PRN (04:45)
[2018-09-29] MEDS ORDERED: NovoLIN-R BOLUS FROM BAG IV ONE (04:45)
[2018-09-29] MEDS ORDERED: INSULIN REGULAR 250 UNITS in SODIUM CHLORIDE 0.9% 247.5 ML IV SCH (04:45)
[2018-09-29] MEDS ORDERED: GLUCOSE 40% GEL 15 GM TUBE PO PRN (04:45)
--- NOTE | 2018-09-29 06:27 | XRay Report ---
XR chest 1V portable CLINICAL HISTORY: acute CHF, cardiogenic shock, dyspnea COMPARISON STUDY: 09/28/2018 FINDINGS: Endotracheal tube 3.5 cm above the david. Components of upper lobe edematous change have s lightly improved with interval findings of a more diffuse pulmonary edematous pattern. Diaphragms are smooth. IMPRESSION: 1. Developing pulmonary edema. Slight improvement in aeration pulmonary apices. The above report was generated using voice recognition software. It may contain grammatical, syntax or spelling errors. Electronically signed by: Gavino Tejada M.D. 09/29/2018 6:26 AM
[2018-09-29 06:48] LABS: Hematocrit (blood only) 45.4 % (42-52); Hemoglobin 15.7 g/dL (14.0-18.0); Mean Corpuscular Hgb Conc 34.6 g/dL (32-36); Mean Corpuscular Volume 90.1 fL (80-100); Mean Platelet Volume 10.1 fL (7.4-10.4); Platelet Count 253 K/uL (130-400); RDW Coefficient of Variation 13.8 % (11.5-14.5); RDW Standard Deviation 45.2 fL (36.4-46.3); Red Blood Count 5.04 M/uL (4.7-6.1); White Blood Count 11.54 K/uL (4.8-10.8)
[2018-09-29] MEDS ORDERED: PERFLUTREN LIPID MICROSPHERE (DEFINITY) IV ONE (07:02)
[2018-09-29 07:15] LABS: BUN Creatinine Ratio 12.7 (10-20); Calcium 7.5 mg/dl (8.5-10.1); Est GFR (African American) 56.8; Magnesium 2.1 mg/dl (1.8-2.4); Potassium 4.4 mmol/L (3.5-5.1)
[2018-09-29 07:26] LABS: Albumin Globulin Ratio 1.1 (0.9-2); Basophils # (auto) 0.01 K/uL (0-0.2); Basophils % (auto) 0.1 %; Bilirubin,Total 1.7 mg/dl (0.2-1); Eosinophils # (auto) 0.01 K/uL (0-0.5); Eosinophils % (auto) 0.1 %; Globulin 2.8 gm/dl (2.5-4.0); Immature Granulocytes % (auto) 0.9 %; Lymphocytes # (auto) 1.07 K/uL (1.2-3.4); Lymphocytes % (auto) 9.3 %; Monocytes # (auto) 0.43 K/uL (0.11-0.59); Monocytes % (auto) 3.7 %; Neutrophils # (auto) 9.92 K/uL (1.4-6.5); Neutrophils % (auto) 85.9 %; Phosphorus 2.6 mg/dl (2.5-4.9); Total Protein 5.8 gm/dl (6.4-8.2)
[2018-09-29] MEDS ORDERED: SODIUM BICARB 8.4% INJ 50 MEQ/50 ML SYR ONE (08:58)
[2018-09-29] MEDS ORDERED: ATORVASTATIN 40 MG TAB PO SCH (09:00)
[2018-09-29] MEDS ORDERED: ASPIRIN 81 MG ECTAB PO SCH (09:00)
[2018-09-29 09:11] LABS: iSTAT Allen Test Pass; iSTAT Art Bld Gas pCO2 Correct 39 mmHg (35-46); iSTAT Art Bld Gas pH Corrected 7.248 (7.35-7.45); iSTAT Arterial Blood Gas HCO3 17 meg/L (19-24); iSTAT Arterial Blood Gas pCO2 39 mmHg (35-46); iSTAT Arterial Blood Gas pH 7.25 (7.35-7.45); iSTAT Carbon Dioxide 18 mEq/l (24-31); iSTAT FiO2 100 %; iSTAT Site L Radial
--- NOTE | 2018-09-29 09:28 | Neurology Consultation ---
Date of Consultation September 29, 2018 Assessment & Plan (1) Hypoxic encephalopathy: Probable hypoxic encephalopathy status post cardiac arrest/myocardial infarction occurring yesterday with return of spontaneous circulation after about 10 minutes of CPR requiring multiple shocks and medical intervention. Patient now status post cardiac catheterization with deployment of a drug- eluting stent to the LAD, cardiogenic shock with reduced ejection fraction and apical akinesis on echocardiogram this morning. Prognosis is fair. An EEG was ordered for this morning although the patient's family reportedly refused this test. Continue current supportive medical care. I plan to reassess him t omorrow morning. History of Present Illness Reason for Consultation: Encephalopathy status post cardiac arrest Requesting Physician: Ladarius Lao Attending Physician: Eren Dozier MD History of Present Illness The patient is a 68-year-old male with cardiac arrest occurring after getting off of a plane from [place] and getting into his 's vehicle as she was wa iting for him at the local airport. Upon getting into the automobile, he had complained to his that he was not feeling very well and had some chest pain. EMS were immediately summoned. Ventricular fibrillation/cardiac arrest identified. He was shocked multiple times and given epinephrine and amiodarone. CPR was initiated at the scene, about 10 minutes. His EKG was consistent with acute ischemia. He was started on IV pressors and was treated urgently in the cardiac catheterization lab for a 100% occlusion of the left anterior descending artery, now status post successful deployment of a drug-eluting stent. He remains on sedatives on the mechanical ventilator/life support and his bedside assessment is limited. His initial CT of the head completed yesterday was unremarkable, without evidence of hemorrhage/acute or subacute process. The patient remains unresponsive. No abnormal movements or seizure activity have been observed. Additional details as below. Family history non-contributory Allergies Allergy/AdvReac Type Severity Reaction Status Date / Time No Known Allergies Allergy Verified 09/29/18 05:19 Patient History Medical History Chest pain Social History Preferred Language: [place] Beliefs That Will Affect Care: None Current Living Situation: Family Other Information That Helps Us Care for You: No Feels Safe at Home: Yes Safety Concerns: Feels Safe At This Time Smoking Status: Never smoker Hx Alcohol Use: Yes Alcohol type: beer Hx Substance Use: No Review of Systems Review of Systems: Unobtainable due to endotracheal tube and Unobtainable due to reduced consciousness Physical Exam Physical Exam: The patient is a well-developed, well-nourished elderly male. He is currently unresponsive, sedated, on the ventilator in the intensive care unit. Testing of higher integrative cognitive functions such as orientation, memory, concentration, speech pattern, and fund of knowledge cannot be really assessed due to his significantly altered mental status. Testing of visual weber and eye movements cannot really be assessed although the pupils are equal, round, and reactive to light. He does not blink to threat. I am unable to elicit corneal reflexes. Visual acuity cannot be assessed. There is no gaze preference or nystagmus. Facial sensation cannot be assessed although as above, I am unable to elicit a blink reflex. Facial strength and hearing cannot be assessed. I am unable to elicit a gag reflex. Shoulder shrug and tongue movements cannot be assessed. Sensation cannot be assessed in this patient although he does exhibit minimal reflexive withdraw of both lower limbs to plantar stimulation. He does not localize to pain. He does not withdraw his upper limbs to pain. Deep tendon reflexes are diffusely diminished. Plantar responses withdrawal as above. Testing of coordination cannot be completed in this patient. Ophthalmoscopic examination reveals normal-appearing optic disks and posterior segments. No papilledema or hemorrhages. Carotid pulses normal bilaterally, no bruits to auscultation. Gait and station cannot be tested. Muscle strength cannot be tested. Muscle tone diffusely flaccid. No atrophy. No abnormal movements observed. Results & Data Vital Signs (Past 12 Hours) Vital Signs Temp Pulse Pulse Resp BP BP Pulse Ox 09/29/18 07:33 95 H 24 97 09/29/18 05:45 98 H 127/92 96 09/29/18 05:30 97 H 125/82 95 09/29/18 05:18 97 H 24 95 09/29/18 05:15 98 H 102/74 96 09/29/18 05:00 98 H 109/95 95 09/29/18 04:45 96 H 140/94 96 09/29/18 04:30 96 H 126/96 97 09/29/18 04:15 96 H 116/87 96 09/29/18 04:00 97 H 126/88 97 09/29/18 03:45 103 H 134/96 95 09/29/18 03:30 98 H 136/93 93 09/29/18 03:15 99 H 125/87 88 L 09/29/18 03:00 100 H 127/85 92 09/29/18 02:45 97 H 119/74 89 L 09/29/18 02:35 96 H 114/85 91 09/29/18 02:30 100 H 120/90 96 09/29/18 02:20 100 H 24 100 09/29/18 02:15 99 H 129/101 H 100 09/29/18 02:00 105 H 141/104 H 99 09/29/18 01:55 107 H 148/109 H 97 09/29/18 01:50 106 H 134/105 H 98 09/29/18 01:45 104 H 133/100 99 09/29/18 01:40 105 H 130/93 100 09/29/18 01:35 106 H 125/97 99 09/29/18 01:30 109 H 139/107 H 99 09/29/18 01:25 113 H 152/110 H 99 09/29/18 01:20 116 H 160/120 H 98 09/29/18 01:15 117 H 178/130 H 96 09/29/18 01:13 116 H 176/132 H 98 09/29/18 01:10 110 H 176/126 H 95 09/29/18 01:08 36.6 C 100 H 21 86/58 L 100 09/29/18 01:05 87 85/62 L 98 09/29/18 01:04 84 70/53 L 93 09/29/18 01:02 83 57/46 L 09/29/18 01:00 84 61/45 L 09/29/18 00:58 84 66/48 L 09/29/18 00:50 89 83/57 L 09/29/18 00:45 94 H 126/70 92 09/29/18 00:42 98 H 18 89 L 09/29/18 00:35 99 H 86/58 L 89 L 09/28/18 22:10 87 18 103/76 89 L 09/28/18 22:05 90 13 110/69 86 L 09/28/18 22:00 93 H 18 112/83 84 L 09/28/18 21:55 95 H 15 103/79 86 L 09/28/18 21:50 108 H 18 97 09/28/18 21:48 113 H 20 118/86 98 09/28/18 21:45 102 H 18 130/95 94 09/28/18 21:40 119 H 32 L 09/28/18 21:37 84 23 45 L Laboratory Results WBC 11.54, hemoglobin 15.7, hematocrit 45.4, platelet count 253, sodium 138, potassium 4.4, BUN 19, creatinine 1.47, glucose 282, calcium 7.5, magnesium 2.1, AST 613, ALT 159, troponin I 146.[address] of the head completed yesterday negative for hemorrhage acute or subacute process. I reviewed the images as well as the radiologist interpretation of this test. An echocardiogram completed this morning reveals a left ventricular ejection fraction of about 25% with apical akinesis and mild anterior and inferior akinesis with abnormal septal motion. No significant valvular pathology. An electrocardiogram completed this morning reveals sinus tachycardia, 106 bpm and an anteroseptal infarct.
--- NOTE | 2018-09-29 09:52 | Procedure Note ---
Procedure Note Date of Service September 29, 2018 Note ARTERIAL LINE PROCEDURE NOTE: Procedure: Arterial Line Placement Attending: Dr. Kiel Lehman Provider: CHDA Olson Indication: Monitoring on Pressors Anesthesia: Lidocaine 1% Consent was signed and placed on the chart prior to procedure. Indication, risks, and benefits were explained at length. A time-out was completed verifying correct patient, procedure, site, positioning, and implant(s) or special equipment if applicable. Allens test was performed to ensure adequate perfusion. Patients left wrist was prepped and draped in the usual sterile fashion. Ultrasound guidance was used to aid needle placement. A 20g Arrow arterial line was introduced into the left radial artery. Catheter was threaded, and the needle was removed with appropriate blood return. Good waveform was observed. The patient tolerated the procedure well. Confirmation of placement with ultrasound. Blood Loss: Minimal Complications: None Procedural Ultrasound Guidance: Procedure Date: 09/29/2018 Indication: Blood pressure monitoring during hypotension, requiring vasopressors Attending: Dr. Kiel Lehman Provider: CHAD Olson Artery Identified: YES Line confirmed in Artery with ultrasound: Yes Complications: NONE Patient tolerated procedure: WELL Supervising Physician Co-Signing Physician Notes I was present for and supervised procedure. See KAYKAY note for details. GR Coding
[2018-09-29] MEDS ORDERED: MIDAZOLAM HCL 5 MG/ML 1 ML VIAL IV STA ×2 (10:17→10:54)
[2018-09-29] MEDS ORDERED: MoRPHine SULFATE 4 MG/ML 1 ML CARP\\VIAL IV STA (10:17)
[2018-09-29] MEDS ORDERED: MoRPHine SULFATE 4 MG/ML 1 ML CARP\\VIAL IV PRN (10:18)
[2018-09-29] MEDS ORDERED: MIDAZOLAM HCL 125 MG/250 ML BAG IV SCH (10:18)
[2018-09-29] MEDS ORDERED: MoRPHine SULF/NSS 100 MG/100 ML BAG IV SCH (10:18)
[2018-09-29] MEDS ORDERED: SODIUM CHLORIDE 0.9% 10ML FLUSH IV ONE (10:53)
[2018-09-29] MEDS ORDERED: VECURONIUM BROMIDE 10 MG VIAL IV ONE (10:53)
[2018-09-29] MEDS ORDERED: NITROGLYCERIN/D5W 100 MCG/ML BTL IV ONE (10:53)
[2018-09-29] MEDS ORDERED: SUCCINYLCHOLINE CHLORIDE 20 MG/ML 10 ML VIAL IV ONE (10:53)
[2018-09-29] MEDS ORDERED: SODIUM CHLORIDE 0.45% INJ 1000 ML BAG IV ONE (10:53)
--- NOTE | 2018-09-29 10:57 | Critical Care Consultation ---
Date of Consultation Late entry. Patient seen and examined 09/28/2018 at 21:40. Was at bedside until 09/29/18 at 01:30am Dr. Pena present entire time September 29, 2018 Assessment & Plan (1) Admitted to intensive care unit: Reason Critically Ill: Status post ST elevated SC with cardiac arrest secondary to ventricular fibrillation. Cardiac Chipping Machine Operator revealed LAD occlusion requiring stent. Patient with persistent ventricular arrhythmia receiving a total of 27 shocks for defibrillation until completion of cardiac catheterization. Neuro - [facility] ICU: No cognitive response. Suspect encephalopathy secondary to anoxia Cardiac - Status post ST elevated SC Opted not to begin hypothermic protocol secondary to electrical arrhythmias Continue supportive care including pressors Respiratory - Endotracheal intubation for mechanical ventilation with size 8 endotracheal tube at 25 at the lip with termination of tube 3.5 cm from the david Patient requiring high PEEP Pulling tidal volumes of 750 to 1000. Tidal volume set at 550 No significant secretions from endotracheal tube Thoracic imaging with pulmonary edema versus pulmonary contusion from compressions Continue supportive care on mechanical ventilator GI - No evidence of GI bleed RENAL/LYTES - Acute kidney injury with creatinine of 1.47 Continue fluid replacement Follow serial labs Replete electrolytes - Galo catheter inserted no evidence of hematuria ENDO - No prior history of diabetes mellitus or hypothyroidism or other endocrinological disease per Continue to manage blood sugars HEME - No significant anemia No active bleeding ID - No evidence of infectious etiology LINES/IV ACCESS - Right tibial IO 2 peripheral IVs Femoral cooling catheter in place with triple-lumen access CCT: 120 minutes independent of any procedures Thank you for including us in the care of this patient. Please refer to Dr. Pena's addendum for further recommendations. (2) ST elevation (STEMI) myocardial infarction: Patient with prior history of CAD with previous history of cardiac catheterization with no prior stenting and only medical management Cardiac catheterization revealed 100% blockage of the LAD -drug-eluting stent placed Dr. Dozier consulted -appreciate his input (3) Hypoxic encephalopathy: Patient with an estimated 8 minutes down prior to CPR being initiated No significant neurologic response on exam Concern for catastrophic hypoxic encephalopathy Continue to monitor overnight Consider EEG in the morning Follow supportively Supervising Physician Co-Signing Physician Notes 68 year old male presented with ventricular arrest. Apparently was down for 8 minutes prior to the initiation of CPR. Then subsequently underwent CPR for roughly [address] chest/abd/pelvis/head were obtained with pertinent findings indicating diffuse infiltrates b/l on CT chest likely representing either pulmonary contusion, aspiration and/or pulmonary edema. No obvious PE was seen. CTH was negative. CT abd relatively unremarkable. He was in profound cardiogenic shock and had ongoing ventricular arrythmias in the component lab tech. He was shocked over 20 times in the component lab tech. A proximal 100% LAD lesion was stented and a diagonal lesion was ballooned open. Patient was requiring 100% fio2 on the ventilator. He was on a lidocaine, amiodarone, propofol, fentanyl and norepinephrine infusion. We brought the patient back to the ICU and opted not to initiate TTM due to profound hemodynamic instability, severe arrythmogenic potential especially in light of his repeated ventricular arrythmias and the families wishes that he would not want to be on continued life support. The and family clearly expressed that Mr. Resendez would not want life support and ultimately the decision was not to escalate care any further. He was made DNR and was palliatively extubated in the morning. History of Present Illness Attending Physician: Eren Dozier MD History of Present Illness Attending: Dr. Pena This is a 68-year-old male that was traveling home from [facility] by airplane. He arrived at [facility] and was walking to his car when he experienced chest pain. Other computers stated they witnessed him arrest and collapsed to the ground. EMS was contacted and arrived after 8 minutes. During this time no CPR or other resuscitative measures were taken. On arrival, paramedics found the patient to be in ventricular fibrillation and the patient was defibrillated. Prehospital the patient was defibrillated a total of 5 times, received a 300 mg bolus of amiodarone, and 1 mg of epinephrine x2. A Scottie device was used for cardiac compressions. It is estimated the patient had a total of about 26 minutes of CPR. A CAT scan of the head as well as CTA of the chest abdomen pelvis was completed and showed no acute findings of the brain and no evidence of pulmonary edema. A heart alert was called and patient was taken emergently to the cardiac catheterization lab from the CT scan area and a cardiac catheterization was completed by Dr. Prateek Dozier. Patient was found to have complete occlusion of the LAD and a stent was placed. During the cardiac catheterization the patient received an additional 22 shocks at 200 J to convert from ventricular fibrillation to sinus rhythm. Patient did transiently convert to normal sinus rhythm with a each attempt at defibrillation. Patient was then transferred to the intensive care unit in room 6 where he was started on pressors and sedation. Patient's tidal volume was set at 550 and patient was consistently pulling volumes of 750 to 1,000 mL. Patient never had any periods of significant response in the intensive care unit prior to my departure at 0200 on 09/29/2018. Patient's was present in the emergency department and at bedside in intensive care unit. She reports that the patient had previous history of cardiac catheterization with no significant findings and medical management only. She stated that he had no tobacco abuse history and only occasional social ethanol use. He has no other prior history of substance abuse. He has no history of thromboembolic disease, diabetes mellitus, pulmonary disease, e ndocrine disorder. 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 Pupils 5 mm and sluggish bilaterally NOSE: No evidence of epistaxis. MOUTH: No lesions or candidiasis. Endotracheal tube inserted at 25 to the lip. Orogastric tube secured at 75 at the lip NECK: Supple. No appreciation of cuff leak LUNGS: No bronchospasm. Positive for rales diffusely HEART: Regular, rate in the low 100s ABDOMEN: Soft, NT, ND, BS Present EXTREMITIES: No LE edema, pedal pulses intact NEURO: No neurological response. Pupils equal to 5 mm and sluggish bilaterally. No response to painful stimuli. Random movement of right arm. Results & Data Vital Signs (Past 12 Hours) Vital Signs Temp Pulse Pulse Resp BP BP Pulse Ox 09/29/18 09:31 100 H 100 09/29/18 09:30 99 H 98 09/29/18 09:19 100 H 104/70 96 09/29/18 09:15 99 H 98 09/29/18 09:01 96 H 129/81 88 L 09/29/18 09:00 94 H 99 09/29/18 08:48 81 85/56 L 95 09/29/18 08:45 81 100 09/29/18 08:35 84 91 09/29/18 08:30 88 95 09/29/18 08:15 89 94/64 L 98 09/29/18 08:00 89 102/71 98 09/29/18 07:45 91 H 104/65 98 09/29/18 07:33 95 H 24 97 09/29/18 07:30 95 H 115/87 97 09/29/18 07:15 95 H 125/86 97 09/29/18 07:00 96 H 114/81 97 09/29/18 06:45 97 H 121/79 96 09/29/18 06:30 97 H 113/84 96 09/29/18 06:15 96 H 118/86 97 09/29/18 06:00 97 H 123/90 96 09/29/18 05:45 98 H 127/92 96 09/29/18 05:30 97 H 125/82 95 09/29/18 05:18 97 H 24 95 09/29/18 05:15 98 H 102/74 96 09/29/18 05:00 98 H 109/95 95 09/29/18 04:45 96 H 140/94 96 09/29/18 04:30 96 H 126/96 97 09/29/18 04:15 96 H 116/87 96 09/29/18 04:00 97 H 126/88 97 09/29/18 03:45 103 H 134/96 95 09/29/18 03:30 98 H 136/93 93 09/29/18 03:15 99 H 125/87 88 L 09/29/18 03:00 100 H 127/85 92 09/29/18 02:45 97 H 119/74 89 L 09/29/18 02:35 96 H 114/85 91 09/29/18 02:30 100 H 120/90 96 09/29/18 02:20 100 H 24 100 09/29/18 02:15 99 H 129/101 H 100 09/29/18 02:00 105 H 141/104 H 99 09/29/18 01:55 107 H 148/109 H 97 09/29/18 01:50 106 H 134/105 H 98 09/29/18 01:45 104 H 133/100 99 09/29/18 01:40 105 H 130/93 100 09/29/18 01:35 106 H 125/97 99 09/29/18 01:30 109 H 139/107 H 99 09/29/18 01:25 113 H 152/110 H 99 09/29/18 01:20 116 H 160/120 H 98 09/29/18 01:15 117 H 178/130 H 96 09/29/18 01:13 116 H 176/132 H 98 09/29/18 01:10 110 H 176/126 H 95 09/29/18 01:08 36.6 C 100 H 21 86/58 L 100 09/29/18 01:05 87 85/62 L 98 09/29/18 01:04 84 70/53 L 93 09/29/18 01:02 83 57/46 L 09/29/18 01:00 84 61/45 L 09/29/18 00:58 84 66/48 L 09/29/18 00:50 89 83/57 L 09/29/18 00:45 94 H 126/70 92 09/29/18 00:42 98 H 18 89 L 09/29/18 00:35 99 H 86/58 L 89 L Laboratory Results Abnormal lab results 09/28/18 09/28/18 09/28/18 Range/Units 21:35 21:35 21:41 WBC 12.48 H (4.8-10.8) K/uL MPV 10.5 H (7.4-10.4) fL Immature Gran # (Auto) 0.37 H (0.00-0.02) K/uL Neut # (Auto) (1.4-6.5) K/uL Lymph # (Auto) 5.37 H (1.2-3.4) K/uL [place] # (Auto) 0.68 H (0.11-0.59) K/uL Activ Coag Time Kaolin (94-140) SECONDS POC pH (7.35-7.45) POC pO2 (80-95) mmHg POC HCO3 (19-24) javier/L POC Base Excess (-9-1.8) javier/L ABG pH (Temp Correct) (7.35-7.45) POC ABG O2 Sat (90-95) % VBG pH (7.36-7.41) POC VBG pH (7.36-7.41) VBG pCO2 (38-50) mmHg POC VBG pCO2 (38-50) mmHg POC VBG HCO3 (23-28) meq/L POC VBG Total CO2 (24-31) mEq/l POC Venous O2 Sat (70-80) % POC Potassium 3.0 L (3.3-5.0) mEq/L Potassium 3.1 L (3.5-5.1) mmol/L Chloride 109 H (98-107) mmol/L Carbon Dioxide 19 L (21-32) mmol/L POC Total CO2 21 L (24-31) mEq/l Anion Gap 15.0 H (3-11) POC BUN 20 H (7-18) mg/dl BUN (7-18) mg/dl Creatinine 1.46 H (0.6-1.4) mg/dl POC Creatinine 1.4 H (0.6-1.3) mg/dl Glucose 327 H* (70-99) mg/dl POC Glucose (other) 304 H (70-99) mg/dl Calcium 7.5 L (8.5-10.1) mg/dl POC Ioniz Calcium Sebastian 1.11 L (1.12-1.32) mmol/l Magnesium 2.7 H (1.8-2.4) mg/dl Total Bilirubin 1.2 H (0.2-1) mg/dl AST 38 H (15-37) U/L ALT (12-78) U/L CK/CKMB % Calc 3.1 H (0-3.0) POC Troponin I (0-0.045) ng/ml Troponin I 0.514 H* (0-0.045) ng/ml Total Protein 5.8 L (6.4-8.2) gm/dl Albumin 3.1 L (3.4-5.0) gm/dl 09/28/18 09/28/18 09/28/18 Range/Units 21:48 21:54 23:17 WBC (4.8-10.8) K/uL MPV (7.4-10.4) fL Immature Gran # (Auto) (0.00-0.02) K/uL Neut # (Auto) (1.4-6.5) K/uL Lymph # (Auto) (1.2-3.4) K/uL [place] # (Auto) (0.11-0.59) K/uL Activ Coag Time Kaolin (94-140) SECONDS POC pH 7.22 L (7.35-7.45) POC pO2 79 L (80-95) mmHg POC HCO3 17 L (19-24) javier/L POC Base Excess -11.0 L (-9-1.8) javier/L ABG pH (Temp Correct) (7.35-7.45) POC ABG O2 Sat (90-95) % VBG pH 7.00 L (7.36-7.41) POC VBG pH (7.36-7.41) VBG pCO2 72 H (38-50) mmHg POC VBG pCO2 (38-50) mmHg POC VBG HCO3 (23-28) meq/L POC VBG Total CO2 (24-31) mEq/l POC Venous O2 Sat (70-80) % POC Potassium (3.3-5.0) mEq/L Potassium (3.5-5.1) mmol/L Chloride (98-107) mmol/L Carbon Dioxide (21-32) mmol/L POC Total CO2 18 L (24-31) mEq/l Anion Gap (3-11) POC BUN (7-18) mg/dl BUN (7-18) mg/dl Creatinine (0.6-1.4) mg/dl POC Creatinine (0.6-1.3) mg/dl Glucose (70-99) mg/dl POC Glucose (other) (70-99) mg/dl Calcium (8.5-10.1) mg/dl POC Ioniz Calcium Sebastian (1.12-1.32) mmol/l Magnesium (1.8-2.4) mg/dl Total Bilirubin (0.2-1) mg/dl AST (15-37) U/L ALT (12-78) U/L CK/CKMB % Calc (0-3.0) POC Troponin I 0.35 H (0-0.045) ng/ml Troponin I (0-0.045) ng/ml Total Protein (6.4-8.2) gm/dl Albumin (3.4-5.0) gm/dl 09/28/18 09/29/18 09/29/18 Range/Units 23:20 00:00 01:47 WBC (4.8-10.8) K/uL MPV (7.4-10.4) fL Immature Gran # (Auto) (0.00-0.02) K/uL Neut # (Auto) (1.4-6.5) K/uL Lymph # (Auto) (1.2-3.4) K/uL [place] # (Auto) (0.11-0.59) K/uL Activ Coag Time Kaolin 241 H (94-140) SECONDS POC pH (7.35-7.45) POC pO2 (80-95) mmHg POC HCO3 (19-24) javier/L POC Base Excess (-9-1.8) javier/L ABG pH (Temp Correct) (7.35-7.45) POC ABG O2 Sat (90-95) % VBG pH (7.36-7.41) POC VBG pH 7.18 L* (7.36-7.41) VBG pCO2 (38-50) mmHg POC VBG pCO2 52 H (38-50) mmHg POC VBG HCO3 19 L (23-28) meq/L POC VBG Total CO2 21 L (24-31) mEq/l POC Venous O2 Sat 37.0 L (70-80) % POC Potassium (3.3-5.0) mEq/L Potassium (3.5-5.1) mmol/L Chloride (98-107) mmol/L Carbon Dioxide (21-32) mmol/L POC Total CO2 (24-31) mEq/l Anion Gap (3-11) POC BUN (7-18) mg/dl BUN (7-18) mg/dl Creatinine (0.6-1.4) mg/dl POC Creatinine (0.6-1.3) mg/dl Glucose (70-99) mg/dl POC Glucose (other) 341 H (70-99) mg/dl Calcium (8.5-10.1) mg/dl POC Ioniz Calcium Sebastian (1.12-1.32) mmol/l Magnesium (1.8-2.4) mg/dl Total Bilirubin (0.2-1) mg/dl AST (15-37) U/L ALT (12-78) U/L CK/CKMB % Calc (0-3.0) POC Troponin I (0-0.045) ng/ml Troponin I (0-0.045) ng/ml Total Protein (6.4-8.2) gm/dl Albumin (3.4-5.0) gm/dl 09/29/18 09/29/18 09/29/18 Range/Units 03:52 04:36 06:24 WBC (4.8-10.8) K/uL MPV (7.4-10.4) fL Immature Gran # (Auto) (0.00-0.02) K/uL Neut # (Auto) (1.4-6.5) K/uL Lymph # (Auto) (1.2-3.4) K/uL [place] # (Auto) (0.11-0.59) K/uL Activ Coag Time Kaolin (94-140) SECONDS POC pH 7.20 L (7.35-7.45) POC pO2 65 L (80-95) mmHg POC HCO3 16 L (19-24) javier/L POC Base Excess -12.0 L (-9-1.8) javier/L ABG pH (Temp Correct) 7.204 L (7.35-7.45) POC ABG O2 Sat 88.0 L (90-95) % VBG pH (7.36-7.41) POC VBG pH (7.36-7.41) VBG pCO2 (38-50) mmHg POC VBG pCO2 (38-50) mmHg POC VBG HCO3 (23-28) meq/L POC VBG Total CO2 (24-31) mEq/l POC Venous O2 Sat (70-80) % POC Potassium (3.3-5.0) mEq/L Potassium (3.5-5.1) mmol/L Chloride (98-107) mmol/L Carbon Dioxide (21-32) mmol/L POC Total CO2 17 L (24-31) mEq/l Anion Gap (3-11) POC BUN (7-18) mg/dl BUN (7-18) mg/dl Creatinine (0.6-1.4) mg/dl POC Creatinine (0.6-1.3) mg/dl Glucose (70-99) mg/dl POC Glucose (other) 288 H 297 H (70-99) mg/dl Calcium (8.5-10.1) mg/dl POC Ioniz Calcium Sebastian (1.12-1.32) mmol/l Magnesium (1.8-2.4) mg/dl Total Bilirubin (0.2-1) mg/dl AST (15-37) U/L ALT (12-78) U/L CK/CKMB % Calc (0-3.0) POC Troponin I (0-0.045) ng/ml Troponin I (0-0.045) ng/ml Total Protein (6.4-8.2) gm/dl Albumin (3.4-5.0) gm/dl 09/29/18 09/29/18 09/29/18 Range/Units 06:35 06:35 07:24 WBC 11.54 H (4.8-10.8) K/uL MPV (7.4-10.4) fL Immature Gran # (Auto) 0.10 H (0.00-0.02) K/uL Neut # (Auto) 9.92 H (1.4-6.5) K/uL Lymph # (Auto) 1.07 L (1.2-3.4) K/uL [place] # (Auto) (0.11-0.59) K/uL Activ Coag Time Kaolin (94-140) SECONDS POC pH (7.35-7.45) POC pO2 (80-95) mmHg POC HCO3 (19-24) javier/L POC Base Excess (-9-1.8) javier/L ABG pH (Temp Correct) (7.35-7.45) POC ABG O2 Sat (90-95) % VBG pH (7.36-7.41) POC VBG pH (7.36-7.41) VBG pCO2 (38-50) mmHg POC VBG pCO2 (38-50) mmHg POC VBG HCO3 (23-28) meq/L POC VBG Total CO2 (24-31) mEq/l POC Venous O2 Sat (70-80) % POC Potassium (3.3-5.0) mEq/L Potassium (3.5-5.1) mmol/L Chloride (98-107) mmol/L Carbon Dioxide (21-32) mmol/L POC Total CO2 (24-31) mEq/l Anion Gap (3-11) POC BUN (7-18) mg/dl BUN 19 H (7-18) mg/dl Creatinine 1.47 H (0.6-1.4) mg/dl POC Creatinine (0.6-1.3) mg/dl Glucose 282 H (70-99) mg/dl POC Glucose (other) 245 H (70-99) mg/dl Calcium 7.5 L (8.5-10.1) mg/dl POC Ioniz Calcium Sebastian (1.12-1.32) mmol/l Magnesium (1.8-2.4) mg/dl Total Bilirubin 1.7 H (0.2-1) mg/dl AST 613 H (15-37) U/L ALT 159 H (12-78) U/L CK/CKMB % Calc (0-3.0) POC Troponin I (0-0.045) ng/ml Troponin I 146.000 H* (0-0.045) ng/ml Total Protein 5.8 L (6.4-8.2) gm/dl Albumin 3.0 L (3.4-5.0) gm/dl 09/29/18 09/29/18 09/29/18 Range/Units 08:25 08:54 09:20 WBC (4.8-10.8) K/uL MPV (7.4-10.4) fL Immature Gran # (Auto) (0.00-0.02) K/uL Neut # (Auto) (1.4-6.5) K/uL Lymph # (Auto) (1.2-3.4) K/uL [place] # (Auto) (0.11-0.59) K/uL Activ Coag Time Kaolin (94-140) SECONDS POC pH 7.25 L (7.35-7.45) POC pO2 153 H (80-95) mmHg POC HCO3 17 L (19-24) javier/L POC Base Excess -10.0 L (-9-1.8) javier/L ABG pH (Temp Correct) 7.248 L (7.35-7.45) POC ABG O2 Sat 99.0 H (90-95) % VBG pH (7.36-7.41) POC VBG pH (7.36-7.41) VBG pCO2 (38-50) mmHg POC VBG pCO2 (38-50) mmHg POC VBG HCO3 (23-28) meq/L POC VBG Total CO2 (24-31) mEq/l POC Venous O2 Sat (70-80) % POC Potassium (3.3-5.0) mEq/L Potassium (3.5-5.1) mmol/L Chloride (98-107) mmol/L Carbon Dioxide (21-32) mmol/L POC Total CO2 18 L (24-31) mEq/l Anion Gap (3-11) POC BUN (7-18) mg/dl BUN (7-18) mg/dl Creatinine (0.6-1.4) mg/dl POC Creatinine (0.6-1.3) mg/dl Glucose (70-99) mg/dl POC Glucose (other) 220 H 190 H (70-99) mg/dl Calcium (8.5-10.1) mg/dl POC Ioniz Calcium Sebastian (1.12-1.32) mmol/l Magnesium (1.8-2.4) mg/dl Total Bilirubin (0.2-1) mg/dl AST (15-37) U/L ALT (12-78) U/L CK/CKMB % Calc (0-3.0) POC Troponin I (0-0.045) ng/ml Troponin I (0-0.045) ng/ml Total Protein (6.4-8.2) gm/dl Albumin (3.4-5.0) gm/dl Diagnostic Findings CT SCAN OF THE BRAIN WITHOUT IV CONTRAST CLINICAL HISTORY: Cardiac arrest. COMPARISON STUDY: No priors. TECHNIQUE: Unenhanced axial CT scan of the brain is performed from the vertex to the skull base. A dose lowering technique was utilized adhering to the principles of ALARA. 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 Brain parenchyma: The brain parenchyma is normal in appearance. There is no hemorrhage, mass effect, or evidence of acute territorial ischemia by CT criteria. Cedeño-white matter differentiation is preserved. No extra-axial fluid collection is seen. Ventricles, sulci, cisterns: Normal in configuration. Intracranial vasculature: There is atherosclerotic calcification of the cavernous carotid arteries. Calvarium: Unremarkable. Sinuses and mastoids: There is mild mucosal thickening within the ethmoid sinuses. The remaining visualized paranasal sinuses are clear. The mastoid air cells are well pneumatized. Fluid is noted in the nasopharynx. Orbits: The bony orbits are grossly intact. IMPRESSION: There is no hemorrhage, mass effect, or evidence of acute territorial ischemia by CT criteria. Electronically signed by: Milton Espinoza M.D. 09/28/2018 10:29 PM [place], [place] [phone] CT Scan Report Patient: LAUREN RESENDEZ Date: 09/28/18 MR#: [id number]: [address] Acct ID:[id number]: Date: 1950[facility] Zip: [place] [address] Age: 68Location: ED Sex: M Room/Bed: Att Phy: Diagnosis: CARDIAC ARREST Monse Phy: PCP,NO Service Date: 09/28/18 Fam Phy: Interpreting Phy: Milton Espinoza MD Admit Phy: Ordering Phy: Dylan Santa DO cc: ~ CT ANGIOGRAM OF THE CHEST; CT SCAN OF THE ABDOMEN AND PELVIS WITH IV CONTRAST CLINICAL HISTORY: Cardiac arrest. COMPARISON STUDY: Chest x-ray and KUB dated 09/28/2018. TECHNIQUE: Following the IV administration of 116 of Optiray 320, CT angiogram of the chest is performed from the upper abdomen to the thoracic inlet utilizing the pulmonary embolus protocol. Images are reviewed in the axial, sagittal, coronal planes. 3-D MIPS images are created and assessed. Subsequently, CT scan of the abdomen and pelvis was performed from the lung bases to the proximal f emora. Images are reviewed in the axial, sagittal, and coronal planes. IV contrast was administered without complication. A dose lowering technique was utilized adhering to the principles of ALARA. The examination is degraded by motion artifact, as well as by streak artifact from the arms which could not be elevated above the chest or abdomen. FINDINGS: CHEST: Thyroid: Imaged portions of the thyroid gland are mildly enlarged and heterogeneous in attenuation. Thoracic aorta: The thoracic aorta is normal in caliber and demonstrates standard 3-vessel arch anatomy. The thoracic aorta is not well opacified. Pulmonary vasculature: The pulmonary trunk is normal in caliber. There are no filling defects identified in the main, lobar, or segmental pulmonary arteries to indicate pulmonary embolus. Heart: The heart is mildly enlarged and configuration, and without pericardial effusion. There are scattered coronary artery calcifications. Lungs and pleural spaces: Evaluation of the lung parenchyma is degraded by motion artifact. An endotracheal tube terminates above the david. Minimal secretions are noted in the trachea. Airspace consolidation is seen throughout both lungs, most confluent in the upper lobes and the superior segments of the lower lobes. Only trace pleural fluid is seen bilaterally. There is no pneumothorax. Mediastinum: There is no mediastinal lymphadenopathy. Dinora: Clear. Axillae: There is no axillary lymphadenopathy. Bony thorax: No lytic or blastic lesions are identified. ABDOMEN AND PELVIS: Liver: The contrast-enhanced liver is normal in size, contour, and attenuation. There is no intrahepatic or ductal dilatation. The hepatic veins and portal veins are patent. Gallbladder: Surgically absent noting clips in the gallbladder fossa. Spleen: Normal in size and attenuation. Pancreas: Unremarkable. Adrenal glands: Unremarkable. Kidneys: The contrast enhanced kidneys are normal in size and without hydronephrosis. Numerous parapelvic cysts are seen bilaterally. The kidneys enhance symmetrically. Abdominal vasculature: The abdominal aorta is normal in course and caliber noting moderate to advanced atherosclerotic calcification. Stomach and bowel: An enteric tube terminates in the distal stomach. The duodenum is normal in configuration. There is no bowel obstruction. Cervicomedullary gas is noted involving the cecum. Pneumatosis intestinalis is not excluded. There is no mesenteric venous or portal venous gas The appendix is well-visualized and normal Peritoneum: There is no intraperitoneal free air or abdominal ascites. There is a small fat-containing umbilical hernia. Lymphadenopathy: None. Pelvic viscera: The bladder is decompressed around a Galo catheter. Small foci of intraluminal gas are likely related to instrumentation. The prostate and seminal vesicles are normal as imaged. Skeletal structures: Degenerative change is noted in the sacroiliac joints with partial fusion on the right. Mild to moderate lumbosacral spondylosis is observed. No lytic or blastic lesions are seen. IMPRESSION: 1. Streak and motion compromised examination. 2. There is no evidence of pulmonary embolus in the main, lobar, or segmental pu lmonary arteries. 3. There is diffuse bilateral airspace consolidation as above. This could represent pulmonary edema, multifocal pneumonia, pulmonary hemorrhage, and/or ARDS. Clinical correlation will be essential. 4. Only trace pleural effusions are identified. No pneumothorax is seen. 5. Mild cardiomegaly. 6. Circumferential gas is noted involving the cecum. This is likely related to colonic contents/stool. Pneumatosis intestinalis is considered much less likely but not entirely excluded. 7. No additional findings are concerning for pneumatosis intestinalis. There is no mesenteric venous or portal venous gas. No intraperitoneal free air is seen. 8. Endotracheal and enteric tubes have been placed as above. Electronically signed by: Milton Espinoza M.D. 09/28/2018 10:45 PM Dictated: 09/28/182229 Transcribed: 09/28/182234 [facility], [place] [phone] XRay Report Patient: LAUREN RESENDEZ Date: 09/28/18 MR#: [id number]: [address] Acct ID:[id number]: Date: 1950[facility] Zip: [place] [id number] Age: 68Location: ED Sex: M Room/Bed: Att Phy: Diagnosis: CARDIAC ARREST [place] Phy: PCP,NO Service Date: 09/28/18 [facility] Phy: Interpreting Phy: Milton Espinoza MD Admit Phy: Ordering Phy: Milton Ardon PA-C cc: ~ MATTHEW CLINICAL HISTORY: Enteric tube placement. FINDINGS: An AP supine view of the upper abdomen is obtained. No prior studies are available for comparison at the time of dictation. An enteric tube has been placed. The tip projects below the diaphragm over the mid to distal stomach. There is no evidence of bowel obstruction. Cholecystectomy clips are seen in the right upper quadrant. The imaged bony structures appear intact. IMPRESSION: An enteric tube projects below the diaphragm over the mid to distal stomach. Electronically signed by: Milton Espinoza M.D. 09/28/2018 10:21 PM Dictated: 09/28/182219 Transcribed: 09/28/182219 PG Care Time/CCT Total # of Minutes Spent Total Time Spent: 120 Total Time Spent with Patient: Total time spent is greater than 50% in coordination of care (as documented) at patient's floor/unit and/or counseling patient: 120 Critical Care Time: Yes Total Critical Care Time: 120
--- NOTE | 2018-09-29 11:16 | Death Summary ---
Date of Service September 29, 2018 Pronouncement Note Date and Time of Date of : 09/29/18 Time of : 10:04 PCOD Preliminary cause of : ST elevation (STEMI) myocardial infarction involving left anterior descending coronary artery Contributing Factors (1) Hypoxic encephalopathy: Summary Additional details: PRONOUNCEMENT NOTE - Date: 09/29/2018 Time: 1054 Summary: In short, the patient was found to be an ventricular fibrillation and cardioverted 5 times in field by EMS. Estimated he was down for 8 minutes prior to arrival and CPR initiation. He was taken to the emergency department found to have STEMI. Taken to [facility] and found to have 100% occlusion of LAD with successful PCI placed. During that time he was cardioverted 22 times from ventricular tachycardia. He was transferred to the ICU and decision was made by family to withdraw life support as patient's neurological exam was poor and he had a very poor prognosis following these events. Assessment: I presented to the patients room for evaluation. Upon assessment, the patient was found to be . Pupils were fixed and dilated without response. No palpable pulses appreciated. No spontaneous breaths noted. Heart sounds were absent. No response to painful stimuli. Time of : 1054 as pronounced by myself. Patients primary service was contacted and made aware of patient demise. Cause of : Primary -ST elevation myocardial infarction involving LAD Secondary -coronary arterial disease Contributing Causes of -hypoxic encephalopathy Please feel free to contact me with any questions regarding the above-mentioned course. Additional Data Attending physician: Eren Dozier MD
--- NOTE | 2018-09-29 17:35 | Cardiology Progress Note ---
Date of Service September 29, 2018 Assessment & Plan (1) Cardiac arrest: Patient made comfort measures overnight. This morning hemodynamically stable on minimal vasopressor support. Electrically stable without recurrent VT on amiodarone, lidocaine. Reasonable urine output overnight. Echocardiogram reviewed and showed severe LV dysfunction with apical akinesis. No other mechanical complications post MO. Neurologically appeared to be having seizure activity and unresponsive without brainstem reflexes. Long discussion with family regarding poor prognosis secondary to anoxic brain injury. Subjective Patient was seen earlier this morning. At that time blood pressure stable on 0.1 of norepinephrine. Electrically stable overnight. Propofol just discontinued. Clonic movements of arms noted. Review of Systems Review of Systems: Unobtainable due to endotracheal tube Physical Exam Physical Exam: General: Intubated, unresponsive to voice, painful stimuli HEENT: Sclerae anicteric, pupils unreactive, dilated Lungs: Coarse breath sounds bilaterally Cardiac: Tachycardic, regular Abdomen: Soft Extremities: Distal extremities without edema, lukewarm. Right radial artery access site without hematoma, pulse intact Results & Data Vital Signs (Past 12 Hours) Vital Signs Temp Pulse Pulse Resp BP BP Pulse Ox 09/29/18 12:17 36.6 C 100 H 24 86/58 L 100 09/29/18 10:40 24 09/29/18 09:31 100 H 100 09/29/18 09:30 99 H 98 09/29/18 09:19 100 H 104/70 96 09/29/18 09:15 99 H 98 09/29/18 09:01 96 H 129/81 88 L 09/29/18 09:00 94 H 99 09/29/18 08:48 81 85/56 L 95 09/29/18 08:45 81 100 09/29/18 08:35 84 91 09/29/18 08:30 88 95 09/29/18 08:15 89 94/64 L 98 09/29/18 08:00 89 102/71 98 09/29/18 07:45 91 H 104/65 98 09/29/18 07:33 95 H 24 97 09/29/18 07:30 95 H 115/87 97 09/29/18 07:15 95 H 125/86 97 09/29/18 07:00 96 H 114/81 97 09/29/18 06:45 97 H 121/79 96 09/29/18 06:30 97 H 113/84 96 09/29/18 06:15 96 H 118/86 97 09/29/18 06:00 97 H 123/90 96 09/29/18 05:45 98 H 127/92 96 PG Care Time/CCT Total # of Minutes Spent Total Time Spent with Patient: Total time spent is greater than 50% in coordination of care (as documented) at patient's floor/unit and/or counseling patient:
--- NOTE | 2018-09-29 17:50 | Discharge Summary ---
Date of Service September 29, 2018 Admission HPI Per Admitting Provider The patient is a 68-year-old male brought to the emergency department via EMS after having an [id number] cardiac arrest. EMS reports that [place] was at the airport earlier this evening with his , when he went into a V. fib arrest. He was shocked 5 times at the airport, given 2 doses of epinephrine and 1 dose of amiodarone. He was reported to have a pulse in the field, CPR was initiated by EMS, Scottie device placed, and patient was transported to the ED. Per the family report, the patient had just gotten off of a plane from [facility], and reported to his that he was having an angina attack. The patient did reportedly have a cardiac catheterization in [place] approximately 4 years ago, but did not require any intervention. A heart alert was called, and Dr. Eren Dozier from interventional cardiology took the patient to the cardiac catheterization laboratory. The patient himself was not able to contribute to the HPI or review of systems, due to unresponsive state. Discharge Data Consultations 09/28/18 23:23 ED Decision to Admit Stat 09/29/18 00:37 Consult Case Management - Discharge Planning Routine Consult Investigation Division Sergeant Routine 09/29/18 03:44 Consult Neurology Routine Procedures Performed Operation Date: 09/28/18 22:00 Actual Procedures s Cineradiography w/Routine Exam - Jonas Dozier MD s Cardiopulmonary Resuscitation(Not Applicable) - Jonas Dozier MD p Aspiration/PCI w/GARY for Stemi(Not Applicable) - Jonas Dozier MD p Cath, Right Heart with Cors(Not Applicable) - Jonas Dozier MD s Central Venous Cath Placement(Right) - Jonas Dozier MD Hospital Course (1) Cardiac arrest: Patient was taken emergently to the cardiac catheterization lab where he was found to have an occluded mid LAD which was treated with a single drug- eluting stent. After reestablished flow developed VT storm requiring numerous shocks - 22 in total over duration of case. Was reloaded with amiodarone, started on lidocaine, received magnesium, calcium, Lopressor and esmolol. Temporarily electrically stable after initiation of sedation with propofol. Blood pressures stable on low-dose norepinephrine 0.05 After completion of procedure though patient became increasingly bradycardic and went into PEA arrest requiring epi, atropine and repeat CPR. ROSC with wide- complex rhythm in the 110s to 120s Patient was thought to be too high risk for targeted temperature management and due to poor prognosis patient made comfort measures overnight after discussion with family. The morning of hospital day 2 patient was initially hemodynamically stable on minimal vasopressor support. Electrically stable on amiodarone, lidocaine and had reasonable urine output overnight. Echocardiogram showed severe LV dysfunction with apical akinesis. No other mechanical complications post W[place]. Troponin to 146. With withdrawal of sedation patient had notable seizure activity but remained unresponsive to all stimuli and with no evidence of brainstem reflexes. Care withdrawn in the setting of terminal anoxic brain injury. pronounced at 10:54 on 09/29/2018.
[2018-09-29] MEDS ORDERED: TICAGRELOR 90 MG TAB PO SCH (21:00)
[2018-10-01 06:45] LABS: iSTAT Creatinine 1.1 mg/dl (0.6-1.3); iSTAT Hemoglobin 14.3 g/dl (14.0-18.0); iSTAT Ionized Calcium 1.06 mmol/l (1.12-1.32); iSTAT Potassium 5.2 mEq/L (3.3-5.0)
[2018-10-01 06:45] LABS: iSTAT Hemoglobin 14.6 g/dl (14.0-18.0); iSTAT Ionized Calcium 1.28 mmol/l (1.12-1.32); iSTAT Potassium 4.7 mEq/L (3.3-5.0)
== END 2018-09-29 10:54 | disposition expired | DRG 246 ==
LOC: ED 21:29 → CC 22:35 → 1E 09-29 00:37
PROC: CLB.CPR (2018-09-28 22:00)
DX: Z68.33 Body mass index [BMI] 33.0-33.9, adult; Z51.5 Encounter for palliative care; E87.6 Hypokalemia; I49.01 Ventricular fibrillation; I50.9 Heart failure, unspecified; I21.02 ST elevation (STEMI) myocardial infarction involving left anterior descending coronary artery; N17.9 Acute kidney failure, unspecified; R73.9 Hyperglycemia, unspecified; E66.9 Obesity, unspecified; I46.2 Cardiac arrest due to underlying cardiac condition; I25.10 Atherosclerotic heart disease of native coronary artery without angina pectoris; G93.1 Anoxic brain damage, not elsewhere classified; J96.01 Acute respiratory failure with hypoxia; Z66 Do not resuscitate